=== PATIENT | female | born 1985 | race Caucasian/White ===

== ENCOUNTER 2016-08-25 09:07 | Inpatient (IN) ==
[2016-08-25] MEDS ORDERED: Ondansetron 4 MG/2 ML VIAL IVP ONE (09:18)
[2016-08-25] MEDS ORDERED: 0.9 % Sodium Chloride 500 ML IVC ONE (09:18)
--- NOTE | 2016-08-25 09:41 | Emergency Department Note ---
START Narrative - START START: I examined this patient and my medical decision-making was reviewed with the DRUM SEALER/PA/Advanced Practice Nurse/Resident Physician. I agree with the documented findings, disposition and treatment plan as described except to the extent set forth below. ED attending: Patient's emergency medicine resident Dr. Juarez. Please see copy of this note for H&P evaluation and management and ED disposition. We both had independent leno-eu-xest time in contact with this patient. Briefly: A 30-year-old female diabetic nonsmoker 2 months presents with chest pain nonexertional since 6 AM. Had an episode 48 hours ago for palpitations followed by a day of fatigue. Denies fevers chills or sputum. Of note patient has severe coronary artery disease and radius had 4 stents and coronary artery bypass graft surgery done about 2 years ago. He is to see Dr. Leyva at [facility] however she no longer is taking worsening new patients. Patient was seen 2 weeks ago and worked up at [facility] admission was offered but patient declined because of her at home. Based on her insurance she is normally in panel with providers at the [facility]. The soonest appointment she can get is September 11. Patient is currently lying in bed afebrile with stable vital signs. EKG shows nonspecific ST-T changes but no acute changes compared to prior EKG. Patient be worked up to exclude diagnostic possibilities which include but are not limited to: Acute coronary syndrome, myocardial infarction, peripartum cardiomyopathy, pneumonia, heart failure, diabetic sequelae, infectious etiologies, and pulmonary embolism. We have provided 45 minutes of critical care service for this patient. Disposition pending.
--- NOTE | 2016-08-25 09:44 | Emergency Department Note ---
Disposition Clinical Impression: NICOLASA (acute kidney injury), Hyperglycemia, Kidney disease, Heart palpitations, Acute on chronic renal failure Chest pain Qualifiers: Chest pain type: precordial pain Qualified Code(s): R07.2 - Precordial pain DKA, type 2 Qualifiers: Diabetes mellitus complication detail: without coma Diabetes mellitus senior living insulin use: with senior living use Qualified Code(s): E13.10 - Other specified diabetes mellitus with ketoacidosis without coma Disposition: Admitted As Inpatient Condition: Serious Time of Disposition: 11:18 Chest Pain HPI - General Chief Complaint: ED Chest Pain Stated Complaint: CP/SOB/Vomiting Time Seen by Provider: 08/25/16 09:18 Source: patient Limitations: no limitations Vital Signs Reviewed: Yes Nursing Notes Reviewed: Yes - History of Present Illness HPI Narrative: Patient is a 30-year-old female presents with a history significant for DE 2 CABG 2 years ago stent placement 4 with 1 stent one year ago, dabetes, HTN, CKD stg 3, Hypercholesterolemia, and has 2mo neweborn at home. Patient presents with chest pain 8 out of 10 occurs intermittently and last 20 minutes to an hour interval between episodes is unknown. Radiation of pain across the chest but not into the shoulders or extremities. Patient reports palpitations or preceding the episodes. Patient states pain started roughly 2 weeks ago and was seen here in the ED and given scheduled follow-up with cardiology was unable to follow-up. Patient admitted home with a baby and is a first- time mother distress thousand history of anxiety attacks states that these feel different she has never had chest pain with anxiety attack. Patient's vehicle was to for her cardiac issues that her surgery was done here. Severity scale (1-10): 5 - Related Data Home Medications Medication Instructions Recorded Confirmed Insulin Glargine,Hum.rec.anlog 1 unit SQ HS 01/12/15 08/25/16 [Lantus Solostar] Insulin LISPRO [HumaLOG] 2 - 10 units SQ TIDWM 01/12/15 08/25/16 Ranitidine HCl 150 mg PO BID 01/12/15 08/25/16 Amlodipine [Norvasc] 10 mg PO DAILY 08/25/16 08/25/16 Carvedilol [Coreg] 50 mg PO BID 08/25/16 08/25/16 Clopidogrel [Plavix] 75 mg PO DAILY 08/25/16 08/25/16 HydrOXYzine Pamoate [Vistaril] 50 mg PO TID PRN 08/25/16 08/25/16 Hydralazine HCl 50 mg PO BID 08/25/16 08/25/16 Hydralazine HCl 100 mg PO HS 08/25/16 08/25/16 Levothyroxine [Synthroid] 25 mcg PO DAILY 08/25/16 08/25/16 Previous Rx's Medication Instructions Recorded Aspirin Enteric Coated [Aspirin EC] 81 mg PO DAILY tablet. 01/23/15 Atorvastatin [Lipitor] 80 mg PO HS #60 tablet 01/23/15 Allergies Allergy/AdvReac Type Severity Reaction Status Date / Time Sulfa (Sulfonamide Allergy Rash Verified 08/15/16 22:30 Antibiotics) hydrocodone [From Vicodin] AdvReac Nausea Verified 08/15/16 22:30 tape AdvReac Redness of Uncoded 08/15/16 22:30 Skin z pack AdvReac Nausea Uncoded 08/15/16 22:30 All systems ED: reviewed and negative except as stated. Constitutional: Denies: fever, chills, weakness Eyes: Denies: vision change ENT ED: Denies: ear pain, throat pain, congestion Cardiovascular: Reports: chest pain, palpitations. Denies: dyspnea on exertion Respiratory: Denies: cough, dyspnea, wheezes, sputum production Gastrointestinal: Reports: nausea, vomiting. 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 CLERICAL history - Social History Smoking Status: Never smoker Alcohol use: Reports: rarely Drug use: Reports: none Physical Exam Vital Signs Temperature 98.0 F 08/25/16 09:09 Pulse Rate 114 08/25/16 09:09 Respiratory Rate 18 08/25/16 09:09 Blood Pressure 170/96 08/25/16 09:09 O2 Sat by Pulse Oximetry 98 08/25/16 09:09 Temperature 98.0 F 08/25/16 09:09 Pulse Rate 114 08/25/16 09:09 Respiratory Rate 18 08/25/16 09:09 Blood Pressure 170/96 08/25/16 09:09 O2 Sat by Pulse Oximetry 98 08/25/16 09:09 Oxygen Delivery Oxygen Delivery Room Air -General Appearance: Patient is a 30-year-old female who is alert and oriented 3 and in no acute distress. Patient is able to sit up and walk to the bed on her own. Patient has no pallor or diaphoresis -Neurological exam: Cranial nerves II-12 intact, no focal deficits observed, strength equal 5/5 bilaterally in upper and lower extremities - Head Head exam: atraumatic, normocephalic, normal inspection - Eye Eye exam: Present: normal appearance, PERRL, EOMI, negative for scleral icterus negative for conjunctival pallor - ENT ENT exam: normal exam, normal oropharynx, mucous membranes moist - Neck Neck exam: Present: normal inspection, full ROM, trachea midline, negative JVD - Chest Chest inspection: Present: Patient has bilateral equal rise and fall of chest wall. Non-tender to palpation. - Respiratory Respiratory exam: Clear to auscultation bilaterally without wheezes rales or rhonchi Cardiovascular Cardiovascular exam: Present: regular rate, normal rhythm, normal heart sounds, blowing systolic murmur without rubs or gallops - Abdominal Exam Abdominal exam: Present: soft, nondistended, Non-Tender light and deep palpation in all quadrants. Bowel sounds normoactive throughout all 4 quadrants. Negative for hyper or hyperresonance. - Extremities Exam Extremities exam: Present: normal inspection, full ROM, pulses equal radial and bilateral dorsal pedal - Back Exam Back exam: Present: normal inspection, full ROM. Absent: tenderness, CVA tenderness (R), CVA tenderness (L) - Psychiatric Psychiatric exam: Present: normal affect, normal mood - Skin Skin exam: Present: warm, dry, intact, normal color - General Limitations: no limitations General appearance: alert Course Course Narrative: Patient seen and examined. Patient underwent workup labs ordered. Imaging ordered chest x-ray - Reevaluation(s) Reevaluation #1: Discussed admission with patient who understands and accepts current treatment and plan Time: 11:05 - Consultations Consultation #1: Discussed case with Dr. Miranda this except the patient for admission to ICU Time: 11:13 Vital Signs Temperature 98.0 F 08/25/16 09:09 Pulse Rate 114 08/25/16 09:09 Respiratory Rate 18 08/25/16 09:09 Blood Pressure 170/96 08/25/16 09:09 O2 Sat by Pulse Oximetry 98 08/25/16 09:09 Temperature 97.9 F 08/25/16 21:23 Pulse Rate 80 08/25/16 21:45 Respiratory Rate 16 08/25/16 19:00 Blood Pressure 126/74 08/25/16 19:00 O2 Sat by Pulse Oximetry 97 08/25/16 20:00 Oxygen Delivery Oxygen Delivery Room Air Chest Pain - MDM Narrative Medical decision making narrative: Mrs. Somers is a 30-year-old female presents with a history significant for DE 2 CABG 2 years ago stent placement 4 with 1 stent one year ago, dabetes, HTN, CKD, Hypercholesterolemia. Patient's history is concerning for ACS/DE, PE, post cardiomyopathy, acute on chronic renal failure. Heart score is 3 Chest x-ray shows no acute abnormalities, patient is hemodynamically stable, afebrile but tachycardic in 110 bpm. Troponin negative at 0.02. Patient has hyperglycemia 629 with no loss with no anion gap. Given insulin and started on IV hydration. Patient has mild hyponatremia and mild hyperkalemia elevated BUN 33 and elevated creatinine of 2.09 that is up from 1.67 on previous visit showing acute kidney injury. Patient also has the elevated d-dimer of 990 today which raises suspicion for possible thromboembolic disease and is concerning for further workup with VQ scan which is not available for patient to have today secondary to the weekend. Patient is currently 2 months which is greater than 6 weeks and should be closer to prepregnancy state. After discussing the patient plan is to admit patient chest pain rule out in a patient with complicated cardiac history of CABG and 4 stents, elevated d-dimer concerning for PE, elevated creatinine or acute kidney injury, hyperglycemia leading to HHS with no anion gap. Pt was seen on the and offered admission but declined 2/2 2mo baby at home but was unable to make followup Patient is unable to have a CT angiogram secondary to elevated creatinine. She requires VQ scan but cannot have one today because the weekend. Dr. Miranda has accepted for admission 1113 but requests admission to ICU. - Medical Records Medical records reviewed: Yes I reviewed the patient's medical records. - Lab Data Lab results reviewed: Yes I reviewed the patient's lab results. Lab results narrative: Short CBC 08/25/16 Range/Units 09:54 WBC 10.0 (4.3-11.1) K/mcL Hgb 12.5 (11.5-15.4) g/dL Hct 39.7 (35.3-44.9) % Plt Count 404 H (140-400) K/mcL Neutrophils # 7.6 (1.6-8.9) K/mcL BMP 08/25/16 Range/Units 09:54 Sodium 131 L (136-145) mEq/L Potassium 4.6 H (3.5-4.5) mEq/L Chloride 101 (98-109) mEq/L Carbon Dioxide 17 L (19-29) mEq/L BUN 33 H (7-20) mg/dL Creatinine 2.09 H (0.57-1.11) mg/dL Glucose 629 H* (70-99) mg/dL Calcium 9.8 (8.6-10.8) mg/dL Cardiac Enzymes 08/25/16 Range/Units 09:54 Troponin I 0.02 (0-0.03) ng/mL Urine 08/25/16 Range/Units 10:45 Urine Color Yellow (Yellow) Urine Clarity Clear (Clear) Urine pH 6.5 (5.0-8.0) pH Units Ur Specific [place] 1.022 (1.010-1.025) Urine Protein >=300 H (Neg-Trace) mg/dL Urine Glucose (UA) >=1000 H (Normal) mg/dL Result diagrams: 08/25/16 09:54 08/25/16 19:43 Lab Results 08/25/16 08/25/16 08/25/16 Range/Units 09:54 09:54 09:54 WBC 10.0 (4.3-11.1) K/mcL RBC 5.31 H (3.82-4.97) M/mcL Hgb 12.5 (11.5-15.4) g/dL Hct 39.7 (35.3-44.9) % MCV 74.8 L (83.0-100.0) fL MCH 23.5 L (28.0-33.3) pg MCHC 31.5 L (31.6-35.5) g/dL RDW 13.5 (11.5-14.5) % Plt Count 404 H (140-400) K/mcL MPV 10.1 (9.4-12.4) fL Immature Gran % 0.4 (0-4) % Seg Neutrophils % 76.2 % Lymphocytes % 15.8 % Monocytes % 6.0 % Eosinophils % 1.4 % Basophils % 0.2 % Neutrophils # 7.6 (1.6-8.9) K/mcL Lymphocytes # 1.6 (0.6-4.6) K/mcL Monocytes # 0.6 (0.0-1.3) K/mcL Eosinophils # 0.1 (0.0-0.6) K/mcL Basophils # 0.0 (0.0-0.2) K/mcL D-Dimer 990 H (0-500) ng/mLFEU Sodium (136-145) mEq/L Potassium (3.5-4.5) mEq/L Chloride (98-109) mEq/L Carbon Dioxide (19-29) mEq/L BUN (7-20) mg/dL Creatinine (0.57-1.11) mg/dL Est GFR ( Amer) (> 60) Est GFR (Non-Af Amer) (> 60) BUN/Creatinine Ratio (6-26) Glucose (70-99) mg/dL Est Mean Plasma Glucose mg/dl Hemoglobin A1c ( - 5.6) % Calculated Osmolality (280-300) Calcium (8.6-10.8) mg/dL Troponin I (0-0.03) ng/mL Serum , Qual Negative (Negative) Urine Color (Yellow) Urine Clarity (Clear) Urine pH (5.0-8.0) pH Units Ur Specific [place] (1.010-1.025) Urine Protein (Neg-Trace) mg/dL Urine Glucose (UA) (Normal) mg/dL Urine Ketones (Negative) mg/dL Urine Blood (Negative) Urine Nitrite (Negative) Urine Bilirubin (Negative) Urine Urobilinogen (Normal) mg/dL Ur Leukocyte Esterase (Negative) Urine Microscopic RBC (0-3) per hpf Urine Microscopic WBC (0-3) per hpf Ur Squamous Epith Cells (None-Few) per lpf Urine Bacteria (None-Few) per hpf Hyaline Casts (None-Few) per lpf Ur Culture Indicated? (NO) 08/25/16 08/25/16 08/25/16 Range/Units 09:54 09:54 09:54 WBC (4.3-11.1) K/mcL RBC (3.82-4.97) M/mcL Hgb (11.5-15.4) g/dL Hct (35.3-44.9) % MCV (83.0-100.0) fL MCH (28.0-33.3) pg MCHC (31.6-35.5) g/dL RDW (11.5-14.5) % Plt Count (140-400) K/mcL MPV (9.4-12.4) fL Immature Gran % (0-4) % Seg Neutrophils % % Lymphocytes % % Monocytes % % Eosinophils % % Basophils % % Neutrophils # (1.6-8.9) K/mcL Lymphocytes # (0.6-4.6) K/mcL Monocytes # (0.0-1.3) K/mcL Eosinophils # (0.0-0.6) K/mcL Basophils # (0.0-0.2) K/mcL D-Dimer (0-500) ng/mLFEU Sodium 131 L (136-145) mEq/L Potassium 4.6 H (3.5-4.5) mEq/L Chloride 101 (98-109) mEq/L Carbon Dioxide 17 L (19-29) mEq/L BUN 33 H (7-20) mg/dL Creatinine 2.09 H (0.57-1.11) mg/dL Est GFR ( Amer) 34 L (> 60) Est GFR (Non-Af Amer) 28 L (> 60) BUN/Creatinine Ratio 16 (6-26) Glucose 629 H* (70-99) mg/dL Est Mean Plasma Glucose 278 mg/dl Hemoglobin A1c 11.3 H ( - 5.6) % Calculated Osmolality 309 H (280-300) Calcium 9.8 (8.6-10.8) mg/dL Troponin I 0.02 (0-0.03) ng/mL Serum , Qual (Negative) Urine Color (Yellow) Urine Clarity (Clear) Urine pH (5.0-8.0) pH Units Ur Specific [place] (1.010-1.025) Urine Protein (Neg-Trace) mg/dL Urine Glucose (UA) (Normal) mg/dL Urine Ketones (Negative) mg/dL Urine Blood (Negative) Urine Nitrite (Negative) Urine Bilirubin (Negative) Urine Urobilinogen (Normal) mg/dL Ur Leukocyte Esterase (Negative) Urine Microscopic RBC (0-3) per hpf Urine Microscopic WBC (0-3) per hpf Ur Squamous Epith Cells (None-Few) per lpf Urine Bacteria (None-Few) per hpf Hyaline Casts (None-Few) per lpf Ur Culture Indicated? (NO) 08/25/16 Range/Units 10:45 WBC (4.3-11.1) K/mcL RBC (3.82-4.97) M/mcL Hgb (11.5-15.4) g/dL Hct (35.3-44.9) % MCV (83.0-100.0) fL MCH (28.0-33.3) pg MCHC (31.6-35.5) g/dL RDW (11.5-14.5) % Plt Count (140-400) K/mcL MPV (9.4-12.4) fL Immature Gran % (0-4) % Seg Neutrophils % % Lymphocytes % % Monocytes % % Eosinophils % % Basophils % % Neutrophils # (1.6-8.9) K/mcL Lymphocytes # (0.6-4.6) K/mcL Monocytes # (0.0-1.3) K/mcL Eosinophils # (0.0-0.6) K/mcL Basophils # (0.0-0.2) K/mcL D-Dimer (0-500) ng/mLFEU Sodium (136-145) mEq/L Potassium (3.5-4.5) mEq/L Chloride (98-109) mEq/L Carbon Dioxide (19-29) mEq/L BUN (7-20) mg/dL Creatinine (0.57-1.11) mg/dL Est GFR ( Amer) (> 60) Est GFR (Non-Af Amer) (> 60) BUN/Creatinine Ratio (6-26) Glucose (70-99) mg/dL Est Mean Plasma Glucose mg/dl Hemoglobin A1c ( - 5.6) % Calculated Osmolality (280-300) Calcium (8.6-10.8) mg/dL Troponin I (0-0.03) ng/mL Serum , Qual (Negative) Urine Color Yellow (Yellow) Urine Clarity Clear (Clear) Urine pH 6.5 (5.0-8.0) pH Units Ur Specific [place] 1.022 (1.010-1.025) Urine Protein >=300 H (Neg-Trace) mg/dL Urine Glucose (UA) >=1000 H (Normal) mg/dL Urine Ketones Trace H (Negative) mg/dL Urine Blood Large H (Negative) Urine Nitrite Negative (Negative) Urine Bilirubin Negative (Negative) Urine Urobilinogen Normal (Normal) mg/dL Ur Leukocyte Esterase Negative (Negative) Urine Microscopic RBC 50-100 H (0-3) per hpf Urine Microscopic WBC 5-15 H (0-3) per hpf Ur Squamous Epith Cells Many H (None-Few) per lpf Urine Bacteria Few (None-Few) per hpf Hyaline Casts None Seen (None-Few) per lpf Ur Culture Indicated? YES A (NO) - Radiology Data Radiology results reviewed: Yes I reviewed the patient's radiology results. Chest X-Ray 08/25/16 09:18 IMPRESSION: No acute cardiopulmonary process identified. D/ / Mark Arrieta MD / Mark Arrieta MD Interpreting Provider: Mark Arrieta MD - EKG Data EKG attestation: Yes I reviewed and interpreted this EKG. EKG results narrative: EKG taken 08/25/2016 at 0921 hours shows a sinus tachycardia at a rate of 115 bpm patient has inverted T waves in V6 and no acute ST elevations or depressions in the leads. EKG looks similar to previous EKG taken 08/15/2016 Patient began having chest pain and repeat EKG was taken at 1021 hrs. on 2016 which showed a tachycardia sinus rhythm at [address] abnormalities looks very close similarity to previous EKG Heart Score - Score History: Slightly Suspicious EKG: Non Specific repolarisation Disturbance Age: Less than 45 Risk Factors: Equal/Greater than 3 risk factor or history of atherosclerotic disease Troponin: Less than normal limit HEART Score Total: 3
[2016-08-25 10:02] LABS: Basophils % 0.2 %; Eosinophils # 0.1 K/mcL (0.0-0.6); Eosinophils % 1.4 %; Hematocrit 39.7 % (35.3-44.9); Hemoglobin 12.5 g/dL (11.5-15.4); Immature Granulocytes % 0.4 % (0-4); Lymphocytes # 1.6 K/mcL (0.6-4.6); Lymphocytes % 15.8 %; Mean Corpuscular HGB Conc 31.5 g/dL (31.6-35.5); Mean Corpuscular Hemoglobin 23.5 pg (28.0-33.3); Mean Corpuscular Volume 74.8 fL (83.0-100.0); Mean Platelet Volume 10.1 fL (9.4-12.4); Monocytes # 0.6 K/mcL (0.0-1.3); Neutrophils # 7.6 K/mcL (1.6-8.9); Platelet Count 404 K/mcL (140-400); Red Blood Count 5.31 M/mcL (3.82-4.97); Red Cell Distribution Width 13.5 % (11.5-14.5); Segmented Neutrophils % 76.2 %
[2016-08-25] MEDS ORDERED: Ondansetron ODT 4 MG TAB.RAPDIS SL ONE (10:05)
[2016-08-25 10:15] LABS: Calcium 9.8 mg/dL (8.6-10.8); Potassium 4.6 mEq/L (3.5-4.5)
[2016-08-25] MEDS ORDERED: Insulin Human Regular 10 UNIT in 0.9 % Sodium Chloride 10 ML IV ONE (10:29)
[2016-08-25 10:58] LABS: Bilirubin,Urine Negative (Negative); Blood,Urine Large (Negative); Clarity,Urine Clear (Clear); Color,Urine Yellow (Yellow); Glucose,Urine (UA) >=1000 mg/dL (Normal); Ketones,Urine Trace mg/dL (Negative); Leukocyte Esterase,Urine Negative (Negative); Nitrite,Urine Negative (Negative); PH,Urine 6.5 pH Units (5.0-8.0); Protein,Urine >=300 mg/dL (Neg-Trace); Specific Gravity,Urine 1.022 (1.010-1.025); Urobilinogen,Urine Normal (Normal)
[2016-08-25 11:00] LABS: Bacteria,Urine Few per hpf (None-Few); Hyaline Casts,Urine None Seen per lpf (None-Few); RBC,Urine 50-100 per hpf (0-3); Squamous Epithelial Cell,Urine Many per lpf (None-Few)
[2016-08-25] MEDS ORDERED: *HR* LORazepam 2 MG/ML VIAL IVP ONE (11:16)
--- NOTE | 2016-08-25 13:05 | Internal Med History&Physical ---
Date of Encounter: 08/25/16 Time of Encounter: 12:50 Assessment and Plan (1) Chest pain Current visit: Yes Status: Acute Given history of coronary artery disease, we will trend troponins. Keep patient in the hospital for observation. Telemetry. Qualifiers: Chest pain type: precordial pain Qualified Code(s): R07.2 - Precordial pain (2) DKA, type 2 Current visit: Yes Status: Acute patient with acute DKA. She will need insulin and fluids per DKA protocol. monitor blood sugars closely. Qualifiers: Diabetes mellitus complication detail: without coma Diabetes mellitus intermediate insulin use: with intermediate use Qualified Code(s): E13.10 - Other specified diabetes mellitus with ketoacidosis without coma; Z79.4 - USP ( current) use of insulin (3) Diabetes mellitus Current visit: Yes Status: Chronic monitor blood sugars closely. 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 Will treat with IV fluids. Monitor renal function. Qualifiers: Chronic kidney disease stage: stage 2 (mild) Qualified Code(s): N18.2 - Chronic kidney disease, stage 2 (mild) (5) Hypertension Current visit: Yes Status: Chronic Blood pressure elevated. We will resume home medications. monitor blood pressure Qualifiers: Hypertension type: essential hypertension Qualified Code(s): I10 - Essential (primary) hypertension (6) Hyperlipidemia Current visit: Yes Status: Chronic continue Lipitor Qualifiers: Hyperlipidemia type: mixed hyperlipidemia Qualified Code(s): E78.2 - Mixed hyperlipidemia (7) Hypothyroidism Current visit: No Status: Chronic continue levothyroxine Qualifiers: Hypothyroidism type: other Qualified Code(s): E03.8 - Other specified hypothyroidism (8) Coronary artery disease Current visit: No Status: Chronic status post CABG. On Plavix, aspirin,Coreg, Lipitor. Qualifiers: Coronary Disease-Associated Artery/Lesion type: tang[place]q artery [place] vs. transplanted heart: tang[place]q heart Associated angina: with other forms of angina Qualified Code(s): I25.118 - Atherosclerotic heart disease of tangirnaq coronary artery with other forms of angina pectoris Internal Medicine - H&P: HPI Chief complaint: Chest pain Admitted From: Emergency Dept Plans for Post Hospital Care: Home History of present illness: Ms. Somers is a 30 year old female Patient with a history of type 1 diabetes mellitus, coronary artery disease status post cardiac CABG, stents presented to the ER with chest pain. Pain is 8 out of 10 in severity and located in the central chest without any radiation. It is intermittent and has been going on for about 2 weeks. Lasts for about 20 minutes. In the ER she received Zofran and Ativan with resolution of pain. Patient does have a history of anxiety disorder and has a 2-month-old child at home. She has never had anxiety induced chest pain before. Her last bypass graft was done in 2014. Patient has had significant history of coronary artery disease with GA and coronary artery stents despite her young age. She presently says her pain is better and she denies any nausea at this time. Denies any fever chills or night sweats. No shortness of breath or cough. Past Med Surg Social Fam HX - Past Medical History Source: old records reviewed Medical history: diabetes, hyperlipidemia, hypertension, myocardial infarction, renal disease, thyroid disease, other Psychiatric history: anxiety, depression - Past Surgical History Surgical History: angioplasty/stent, coronary bypass (CABG) - Social History Smoking Status: Never smoker Smokeless Tobacco Status: No Alcohol use: rarely Drug use: none - Family History Mother Family Member Ethnicity: Non- Living Status: Still Living Hx Family Cardiac Disorders: Yes (CAD) Father Family Member Ethnicity: Non- Living Status: Still Living Hx Family Cardiac Disorders: Yes (Father hx of heart disease s/p CABG) Brother Adopted: No Family Member Ethnicity: Non- Living Status: Hx Family Cardiac Disorders: (Father w/heart disease s/p CABG) Internal Medicine - H&P: Meds Insulin Glargine,Hum.rec.anlog [Lantus Solostar] 1 unit SQ HS 01/12/15 [History] Insulin LISPRO [HumaLOG] 2 - 10 units SQ TIDWM 01/12/15 [History] Ranitidine HCl 150 mg PO BID 01/12/15 [History] Aspirin Enteric Coated [Aspirin EC] 81 mg PO DAILY tablet. 01/23/15 [Rx] Atorvastatin [Lipitor] 80 mg PO HS #60 tablet 01/23/15 [Rx] Amlodipine [Norvasc] 10 mg PO DAILY 08/25/16 [History] Carvedilol [Coreg] 50 mg PO BID 08/25/16 [History] Clopidogrel [Plavix] 75 mg PO DAILY 08/25/16 [History] HydrOXYzine Pamoate [Vistaril] 50 mg PO TID PRN 08/25/16 [History] Hydralazine HCl 50 mg PO BID 08/25/16 [History] Hydralazine HCl 100 mg PO HS 08/25/16 [History] Levothyroxine [Synthroid] 25 mcg PO DAILY 08/25/16 [History] Allergies Sulfa (Sulfonamide Antibiotics) Allergy (Verified 08/15/16 22:30) Rash hydrocodone [From Vicodin] Adverse Reaction (Verified 08/15/16 22:30) Nausea tape Adverse Reaction (Uncoded 08/15/16 22:30) Redness of Skin z pack Adverse Reaction (Uncoded 08/15/16 22:30) Nausea All Systems PM: A 10-system review of systems was performed and is negative for pertinent findings except as documented above in the HPI. - Constitutional Constitutional: no chills, no fever(s), no night sweats - EENT Eyes: no change in vision, no discharge, no pain, no photophobia Ears: no ear discharge, no ear pain, no tinnitus Nose, mouth and throat: no dysphagia, no nasal discharge, no neck pain, no sore throat - Cardiovascular Cardiovascular ROS IM: chest pain, no diaphoresis, no dyspnea, no lightheadedness, no palpitations, no syncope - Respiratory Respiratory: no cough, no dyspnea, no wheezing, no excessive phlegm production - Gastrointestinal Gastrointestinal: nausea, no abdominal pain, no diarrhea, no hematemesis, no hematochezia, no melena, no vomiting - Genitourinary Genitourinary: no change in urinary stream, no dysuria, no flank pain, no hematuria - Musculoskeletal Musculoskeletal ROS IM: no numbness, no tingling - Integumentary Integumentary IM: no rash, no unusual bruising - Neurological Neurological ROS: no confusion, no convulsions, no focal weakness, no numbness, no tingling, no tremor(s) - Hematologic/Lymphatic Hematologic/Lymphatic: no easy bruising - Constitutional Vitals: Temp Pulse Resp BP Pulse Ox 98.0 F 111 18 134/78 97 08/25/16 09:09 08/25/16 12:00 08/25/16 12:00 08/25/16 12:00 08/25/16 12:00 General appearance: Present: no acute distress, answers questions appropriately Exam: Somnolent but awakes and is oriented - Eye Eye exam: Present: EOMI, PERRL, conjuntiva pink, sclera anicteric - Neck Neck exam general surgery: Present: supple, trachea midline. Absent: lymphadenopathy - Respiratory Respiratory exam: Present: CTAB. Absent: accessory muscle use, rales, rhonchi, wheezes - Cardiovascular Cardiovascular exam: Present: RRR, +S1, +S2. Absent: diastolic murmur, gallop, rubs, systolic murmur - GI/Abdominal GI/Abdominal exam: Present: normal bowel sounds, soft, no peritoneal signs. Absent: distended, tenderness - Extremities Exam Extremities exam: Present: warm, radial pulses palpable and symetrical. Absent : calf tenderness, cyanotic, pedal edema - Neurological Exam Neurological exam: Present: no focal deficits. Absent: facial droop, speech deficit - Psychiatric Psychiatric exam: Present: flat affect - Skin Skin exam: Present: dry, intact Internal Med - H&P Results - Labs CBC & Chem 7: 08/25/16 09:54 08/25/16 09:54 - EKG Data EKG shows normal: sinus rhythm, ST-T waves (T wave inversion Lead v6) Rate: tachycardia - Impressions Impressions Chest X-Ray 08/25/16 09:18 IMPRESSION: No acute cardiopulmonary process identified. D/ / Mark Arrieta MD / Mark Arrieta MD Interpreting Provider: Mark Arrieta MD - Attending Attestation This document has been at least partially created by in3Depth recognition technology by Dr. Miranda. Errors in grammar, wording or other phrases may exist. If errors are found after the documentation is signed, they will be addressed individually in the addendum section of this document when appropriate.
[2016-08-25] MEDS ORDERED: *HR* Dextrose 50 % in Water (Syg) 50 ML SYRINGE IVP PRN ×2 (13:35→17:54)
[2016-08-25] MEDS ORDERED: Insulin Regular, Human 100 UNIT/ML IV PRN (13:35)
[2016-08-25] MEDS ORDERED: Ondansetron 4 MG/2 ML VIAL IVP PRN (13:38)
[2016-08-25] MEDS ORDERED: Naloxone 0.4 MG/ML INJ IVP PRN (13:38)
[2016-08-25] MEDS ORDERED: hydrOXYzine pamoate 25 MG CAPSULE PO PRN (13:41)
[2016-08-25] MEDS ORDERED: 0.9 % Sodium Chloride 1,000 ML IV SCH (13:45)
[2016-08-25 13:56] LABS: Hemoglobin A1C 11.3 %
[2016-08-25] MEDS ORDERED: D5% in 0.45% NACL 1,000 ML IVC PRN (14:11)
[2016-08-25] MEDS ORDERED: Insulin Human Regular 100 UNIT in 0.9 % Sodium Chloride 100 ML IVC SCH (14:15)
[2016-08-25] MEDS ORDERED: D5% in 0.45% NACL w KCl 20 MEQ/1,000 ML MLS IVC PRN (14:16)
[2016-08-25 17:35] LABS: Calcium 8.6 mg/dL (8.6-10.8)
[2016-08-25] MEDS ORDERED: Insulin DETEMIR 100 UNIT/ML X5UNITS SQ STA (17:52)
[2016-08-25] MEDS ORDERED: D5% in Water 1,000 ML IV PRN (17:54)
[2016-08-25] MEDS ORDERED: Dextrose Gel 15 GM PO PRN ×2 (17:54)
[2016-08-25 20:00] LABS: Calcium 8.6 mg/dL (8.6-10.8); Potassium 4.2 mEq/L (3.5-4.5)
[2016-08-25] MEDS: hydrALAZINE 25 MG TABLET PO SCH (20:11)
[2016-08-25] MEDS: Insulin LISPRO 300 UNITS/3 ML VIAL SQ SCH (20:12)
[2016-08-26 03:31] LABS: Calcium 8.5 mg/dL (8.6-10.8); Potassium 4.2 mEq/L (3.5-4.5)
[2016-08-26 03:32] LABS: Chol/HDL Ratio 7.9 (0-4.9); HDL Cholesterol 33 mg/dL (40-59); Triglycerides 455 mg/dL (< 150)
[2016-08-26 03:33] LABS: Cholesterol 260 mg/dL (< 200)
[2016-08-26] MEDS ORDERED: *HR* Heparin 5,000 UNIT/ML VIAL IVP PRN ×2 (03:50)
[2016-08-26] MEDS ORDERED: *HR* Heparin 5,000 UNIT/ML VIAL IVP ONE (03:50)
[2016-08-26 05:02] LABS: Prothrombin Time 10.8 Seconds (9.4-12.1)
[2016-08-26 05:05] LABS: Activated Partial Thrombo Time 26.5 Seconds (26.0-36.0)
[2016-08-26 05:06] LABS: Hematocrit 36.3 % (35.3-44.9); Hemoglobin 11.3 g/dL (11.5-15.4); Mean Corpuscular HGB Conc 31.1 g/dL (31.6-35.5); Mean Corpuscular Volume 77.2 fL (83.0-100.0); Mean Platelet Volume 10.2 fL (9.4-12.4); Platelet Count 346 K/mcL (140-400); Red Cell Distribution Width 13.7 % (11.5-14.5)
[2016-08-26] MEDS: Heparin 25,000 UNIT/500 ML D5W 25,000 UNIT/500 ML MLS IVC SCH (05:18)
[2016-08-26] MEDS: Levothyroxine 25 MCG TABLET PO SCH (05:19)
[2016-08-26] MEDS: Famotidine 20 MG TABLET PO SCH (08:06)
[2016-08-26] MEDS: Aspirin Enteric Coated 81 MG Tablet PO SCH (08:07)
[2016-08-26] MEDS: Insulin LISPRO 300 UNITS/3 ML VIAL SQ SCH ×6 (08:07→20:01)
[2016-08-26] MEDS: hydrALAZINE 25 MG TABLET PO SCH ×2 (08:07→20:54)
[2016-08-26] MEDS: amLODIPine 5 MG TABLET PO SCH (08:07)
--- NOTE | 2016-08-26 10:19 | Electrocardiograph Report ---
[address] [place], [place] [address] Test Date: 2016-08-25 Pat Name: Eunice Somers Department: 103 Room: [facility] Gender: F Hand Picker: : [phone] Requested By: Tomas Moulton Order Number: [id number] Reading MD: Jordan Marin MD Measurements Intervals [place] Rate: 115 P: 45 [place]: 142 QRS: 16 QRSD: 82 T: 109 QT: 341 QTc: 409 Interpretive Statements SINUS TACHYCARDIA CONSIDER LATERAL ISCHEMIA Electronically Signed On 08-26-2016 10:17:17 EDT by Jordan Marin MD
--- NOTE | 2016-08-26 10:46 | Cardiology Consult Note ---
Date of Encounter: 08/26/16 Time of Encounter: 11:00 Assessment and Plan (1) Elevated troponin Current Visit: Yes Status: Acute NSTEMI type I vs. II, demand ischemia, in the setting of NICOLASA on CKD, HTN, and DKA. No acute ECG changes compared to previous. She states chest pain was different from prior [place] presentation. Pain free upon exam. Peak troponin=0.35 with downward trend. Hx of premature CAD--CABG x1 in January 2015 due to ISR. Reports PCI in September [address] Burk at [facility]--records requested. Of note, had known residual LCx stenosis s/p CABG with Dr. Lamas. Has also followed with [facility] and has appointment 09/11/16. Continue heparin gtt for 24-48 hours. Continue asa, statin, plavix, and betablocker. Obtain TTE and old records. (2) Hypertension Current Visit: Yes Status: Chronic SBP >170 upon admission. Home medications resumed and is now stable, encouraged compliance with meds at home. Qualifiers: Hypertension type: essential hypertension Qualified Code(s): I10 - Essential (primary) hypertension (3) NICOLASA (acute kidney injury) Current Visit: Yes Status: Acute NICOLASA on CKD; SCr improved this AM. Baseline 1.3-1.6. Discussion w patient/family: The assessment and plan as outlined above was discussed with the patient and/or family members who expressed understanding and agreement. All questions were answered. Thank you for involving us in the care of your patient. Please call with any questions. The patient will be discussed and reviewed with Dr. Sauceda; changes to be made accordingly. History of Present Illness Consult date: 08/26/16 Requesting physician: Chad Camilo Consult reason: Elevated troponin Chief complaint: Chest pain History of present illness: Ms. Somers is a 30 year old female with PMH of poorly controlled DMI, HTN, HLD, CKD, and CAD s/p CABG who presented to the ED with a 1 day history of left- sided chest pain, reports pain lasted several hours. She took a NTG tab at home which did not improve symptoms and therefore went to the ED. Associated symptoms include nausea and 1 episode of vomiting. Upon arrival to ED, blood glucose was >600 and was noted to have an NICOLASA on CKD. Initial troponin was 0.04. Upon exam this morning she is chest pain free and has no complaints. She reports non-compliance with insulin and checking blood glucose at home. She also has a open wound (improved per patient/ report) to abdominal incision s/p . Prior CV testing includes: Stress echocardiogram 05/09/15: Appropriate increase EF with stress without wall motion abnormality. LVEF 60-65% Mild concentric hypertrophy of the left ventricle. Appropriate increase in LVEF with Stress. LVEF augments from 60-65 to 70-75 %. Exercise ECG was positive for ischemia. The exercise capacity was fair, did not reach target heart rate There is 2mm horizontal ST depression with stress - inferolateral - that is diagnostic for ischemia (worsened from baseline) but maybe secondary to LVH Patient had no chest pain with stress. Hypertensive response to stress. No arrhythmias noted with stress. [facility] 01/19/15: CABRERA-LAD LHC 01/13/15: severe three vessel coronary artery disease, EF 65%, severe diastolic dysfunction, Previous stents in proximal/mid LAD, OM1 patent, Severe instent restenosis of mid LAD DOUG--patient was recommended for bypass. LMCA: 20% stenosis LAD: 40% pLAD, 99% ISR mLAD--long and diffusely diseased, 20% ISR prox- mid LAD LCx: 35% pLCx, 85% serial stenoses mLCx, 20% ISR OM1 RCA: 99% pRCA, small and non-dominant. Past Med Surg Social Fam HX - Past Medical History Attestation: Yes The following information was validated with the patient. Source: patient, old records reviewed Medical history: coronary artery disease, diabetes, hyperlipidemia, hypertension , myocardial infarction, renal disease, thyroid disease Psychiatric history: anxiety, depression - Past Surgical History Surgical History: angioplasty/stent, coronary bypass (CABG) - Social History Smoking Status: Never smoker Smokeless Tobacco Status: No Alcohol use: rarely Drug use: none - Family History Mother Family Member Ethnicity: Non- Living Status: Still Living Hx Family Cardiac Disorders: Yes (CAD) Father Family Member Ethnicity: Non- Living Status: Still Living Hx Family Cardiac Disorders: Yes (Father hx of heart disease s/p CABG) Brother Adopted: No Family Member Ethnicity: Non- Living Status: Hx Family Cardiac Disorders: (Father w/heart disease s/p CABG) Medications and Allergies Insulin Glargine,Hum.rec.anlog [Lantus Solostar] 1 unit SQ HS 01/12/15 [History] Insulin LISPRO [HumaLOG] 2 - 10 units SQ TIDWM 01/12/15 [History] Ranitidine HCl 150 mg PO BID 01/12/15 [History] Aspirin Enteric Coated [Aspirin EC] 81 mg PO DAILY tablet. 01/23/15 [Rx] Atorvastatin [Lipitor] 80 mg PO HS #60 tablet 01/23/15 [Rx] Amlodipine [Norvasc] 10 mg PO DAILY 08/25/16 [History] Carvedilol [Coreg] 50 mg PO BID 08/25/16 [History] Clopidogrel [Plavix] 75 mg PO DAILY 08/25/16 [History] HydrOXYzine Pamoate [Vistaril] 50 mg PO TID PRN 08/25/16 [History] Hydralazine HCl 50 mg PO BID 08/25/16 [History] Hydralazine HCl 100 mg PO HS 08/25/16 [History] Levothyroxine [Synthroid] 25 mcg PO DAILY 08/25/16 [History] Allergies Sulfa (Sulfonamide Antibiotics) Allergy (Verified 08/15/16 22:30) Rash hydrocodone [From Vicodin] Adverse Reaction (Verified 08/15/16 22:30) Nausea tape Adverse Reaction (Uncoded 08/15/16 22:30) Redness of Skin z pack Adverse Reaction (Uncoded 08/15/16 22:30) Nausea All Systems Review: A 10-system review of systems was performed and is negative for pertinent findings except as documented above in the HPI. - Cardiovascular Cardiovascular: as per HPI Physical Examination Vital Signs, Last 4 Hours Temp Pulse Resp BP Pulse Ox 08/26/16 10:00 79 18 08/26/16 09:00 84 16 08/26/16 08:00 84 16 111/62 96 08/26/16 07:30 98.0 F 08/26/16 07:00 82 14 95 General: Conversant, No Apparent Distress HEENT: Atraumatic, Normocephaly, Mucus Membranes Moist Cardiac: Reg Rate and Rhythm, Normal S1 and S2 Lungs: Normal Breath Sounds Neuro: Alert and responsive Abdomen: Soft Skin: No rashes noted on visualized skin, Other (mid sternal scar) Musculoskeletal: No Chest Wall Tenderness Extremities: No Edema, Normal Pulses Results 08/26/16 04:18 08/26/16 03:06 Lab Results 08/25/16 08/25/16 08/25/16 16:31 16:31 19:43 Sodium 139 D 141 Potassium 4.0 4.2 Chloride 110 H 110 H Carbon Dioxide 23 21 BUN 28 H 26 H Creatinine 1.57 H 1.41 H Glucose 264 H 123 H Calcium 8.6 8.6 Troponin I 0.04 H* 08/25/16 08/26/16 08/26/16 21:50 03:06 03:06 Sodium 135 L Potassium 4.2 Chloride 107 Carbon Dioxide 20 BUN 26 H Creatinine 1.59 H Glucose 269 H Calcium 8.5 L Troponin I 0.26 H* 0.35 H* 08/26/16 08/26/16 08/26/16 04:18 04:18 09:48 WBC 8.7 Hgb 11.3 L Hct 36.3 Plt Count 346 INR 1.0 APTT 26.5 Troponin I 0.28 H* Active Medications Amlodipine Besylate (Norvasc) 10 mg PO DAILY [facility] PRN Reason: Protocol Stop: 02/25/17 09:01 Last Admin: 08/26/16 08:07 Dose: 10 mg Aspirin (Aspirin Ec) 81 mg PO DAILY [facility] Stop: 02/25/17 09:01 Last Admin: 08/26/16 08:07 Dose: 81 mg Atorvastatin Calcium (Lipitor) 80 mg PO HS [facility] Stop: 02/24/17 21:01 Last Admin: 08/25/16 20:11 Dose: 80 mg Carvedilol (Coreg) 50 mg PO BID [facility] PRN Reason: Protocol Stop: 02/24/17 21:01 Last Admin: 08/26/16 08:07 Dose: 50 mg Clopidogrel Bisulfate (Plavix) 75 mg PO DAILY [facility] Stop: 02/25/17 09:01 Last Admin: 08/26/16 08:07 Dose: 75 mg Dextrose/Water (Dextrose 50% (Syg)) 25 ml IVP Q15MIN PRN PRN Reason: Hypoglycemia Stop: 02/24/17 13:36 Dextrose/Water (Dextrose 50% (Syg)) 25 ml IVP AD PRN PRN Reason: Hypoglycemia Stop: 02/24/17 17:55 Famotidine (Pepcid) 20 mg PO DAILY@0730 [facility] Stop: 02/25/17 07:31 Last Admin: 08/26/16 08:06 Dose: 20 mg Glucagon (Glucagen) 1 mg IM ONCE PRN PRN Reason: Hypoglycemia Stop: 02/24/17 17:55 Glucose (Gluctose) 15 gm PO ONCE PRN PRN Reason: Hypoglycemia Stop: 02/24/17 17:55 Glucose (Gluctose) 30 gm PO ONCE PRN PRN Reason: Hypoglycemia Stop: 02/24/17 17:55 Heparin Sodium (Porcine) (Heparin) 4,000 unit IVP Q6HR PRN PRN Reason: SEE COMMENTS Stop: 02/25/17 03:51 Heparin Sodium (Porcine) (Heparin) 2,000 unit IVP Q6H PRN PRN Reason: SEE COMMENTS Stop: 02/25/17 03:51 Hydralazine HCl (Hydralazine) 50 mg PO BID [facility] Stop: 02/24/17 21:01 Last Admin: 08/26/16 08:07 Dose: 50 mg Hydroxyzine Pamoate (Hydroxyzine Pamoate) 50 mg PO TID PRN PRN Reason: Anxiety Sodium Chloride (0.9 % Sodium Chloride) 1,000 mls @ 500 mls/hr IV TITR [facility] PRN Reason: Protocol Stop: 02/24/17 13:46 Last Admin: 08/25/16 14:29 Dose: 500 mls/hr Dextrose/Sodium Chloride (D5% And 0.45% Nacl 1000 Ml Bag) 1,000 mls @ 250 mls/ hr IVC .Q4H PRN PRN Reason: SEE COMMENTS Stop: 02/24/17 14:12 Potassium Chloride/Dextrose/Sod Cl (Kcl 20meq In D5%-0.45 Nacl) 20 meq in 1, 000 mls @ 250 mls/hr IVC .Q4H PRN PRN Reason: SEE COMMENTS Stop: 02/24/17 14:17 Dextrose (Dextrose 5%) 1,000 mls @ 100 mls/hr IV CONT PRN PRN Reason: HYPOGLYCEMIA Stop: 02/24/17 17:55 Heparin Sodium/Dextrose (Heparin 25,000 Unit/500 Ml D5w) 25,000 unit in 500 mls @ 19.816 mls/hr IVC .Q24H [facility]A; 10.1 UNIT/KG/HR PRN Reason: Protocol Stop: 02/25/17 04:01 Last Admin: 08/26/16 05:18 Dose: 10.1 unit/kg/hr, 19.816 mls/hr Insulin Human Lispro (Humalog) 0 units SQ HS [facility] PRN Reason: Protocol Stop: 02/24/17 21:01 Last Admin: 08/25/16 20:12 Dose: Not Given Insulin Human Lispro (Humalog) 0 units SQ TIDAC [facility] PRN Reason: Protocol Stop: 02/25/17 07:31 Last Admin: 08/26/16 08:07 Dose: 12 units Levothyroxine Sodium (Synthroid) 25 mcg PO DAILY@0630 [facility] Stop: 02/25/17 06:31 Last Admin: 08/26/16 05:19 Dose: 25 mcg Naloxone HCl (Narcan) 0.4 mg IVP Q2MIN PRN PRN Reason: Opioid Reversal Stop: 02/24/17 13:39 Ondansetron HCl (Zofran) 4 mg IVP Q8HR PRN PRN Reason: Nausea And Vomiting Stop: 02/24/17 13:39 - Imaging and Cardiology Stress Test: report reviewed Echo: report reviewed Cardiac cath: report reviewed Other Results: 12 hour tele: avg HR=81 SR. No significant event noted. - EKG Interpretation EKG results cardiology: personally reviewed Consult Discharge Plan - Plan Referrals: Rachel Hong CNP [Primary Care Provider] -
--- NOTE | 2016-08-26 10:47 | Internal Med Progress Note ---
<Rito Negron - Last Filed: 08/26/16 13:59> Date of Encounter: 08/26/16 Time of Encounter: 09:00 - Assessment and plan (1) Elevated troponin Current Visit: Yes Status: Acute Assessment and plan: - Patient with significant CAD history s/p CABG presented with chest pain and found to have elevated troponin as high as 0.35 - Troponin now trended down to 0.28. - No significant ischemic change on EKG compared to previous one. Currently chest-free. - Cardiology thinks it's likely from demand ischemia in the setting of NICOLASA on CKD, DM and HTN. - Continue heparin gtt for 24 -48 hours along with aspirin, statin, Plavix and beta rui as recommended per cardiology. - Will obtain TTE for further evaluation. - Appreciate cardiology assistance on patient care. - Closely monitoring with telemetry. (2) Acute on chronic renal failure Current Visit: Yes Status: Acute Assessment and plan: - SCr 2.09 on initial presentation (baseline ~1.2). - Likely secondary to dehydration and uncontrolled diabetes. - Improves with SCr 1.59 today. - Continue to monitor renal function. (3) Vaginal bleeding Current Visit: Yes Status: Acute Assessment and plan: - 2 months and patient reports episodes of vaginal bleeding. - Unhealed incision site is also noted, likely related to uncontrolled diabetes. Wound care consulted. - Patient is currently on heparin drip. And she reports vaginal bleeding again. - Appreciate OBGYN evaluation and recommendation. (4) Diabetes mellitus Current Visit: Yes Status: Chronic Assessment and plan: - Uncontrolled diabets with Hgb A1C of 11.3. - Continue basal and sliding scale insulin with glucose monitoring. - nurse informatics educator consulted. Qualifiers: Diabetes mellitus type: type 2 Diabetes mellitus complication status: with ketoacidosis Diabetes mellitus complication detail: without coma Diabetes mellitus alf insulin use: with watermelon harvesting supervisor use Qualified Code(s): E13.10 - Other specified diabetes mellitus with ketoacidosis without coma; Z79.4 - shelter (current) use of insulin (5) Coronary artery disease Current Visit: No Status: Chronic Assessment and plan: - CAD s/p CABG 2014 also with multiple CV risk factors including DM, HTN and hyperlipidemia. - Continue aspirin, plavix, statin and beta rui. Qualifiers: Coronary Disease-Associated Artery/Lesion type: [place] artery [place] vs. transplanted heart: [place] heart Associated angina: with other forms of angina Qualified Code(s): I25.118 - Atherosclerotic heart disease of [place] coronary artery with other forms of angina pectoris - Subjective Interval history: No significant event noted overnight. Patient was seen and examined this morning. Patient is sitting in chair and states doing well. She reports no chest pain, palpitation, shortness of breath, nausea, vomiting, diarrhea, fever , chills. Patient just had a baby boy two months ago but reports having 3 days of menstrual period that stopped three days ago but restarted today. - Constitutional Vitals: Temp Pulse Resp BP Pulse Ox 98.0 F 79 18 111/62 96 08/26/16 07:30 08/26/16 10:00 08/26/16 10:00 08/26/16 08:00 08/26/16 08:00 General appearance: Present: cooperative, A&O X 3, no acute distress, answers questions appropriately - Head Head exam: Present: atraumatic, normocephalic - Eye Eye exam: Present: PERRL, conjuntiva pink, sclera anicteric - Neck Neck exam general surgery: Present: supple, trachea midline. Absent: lymphadenopathy - Respiratory Respiratory exam: Present: CTAB. Absent: accessory muscle use, rales, rhonchi, wheezes - Cardiovascular Cardiovascular exam: Present: RRR, +S1, +S2. Absent: diastolic murmur, gallop, rubs, systolic murmur - GI/Abdominal GI/Abdominal exam: Present: normal bowel sounds, soft, no peritoneal signs. Absent: distended, tenderness Additional comments: Unhealed incision site noted. - Extremities Exam Extremities exam: Present: warm, radial pulses palpable and symetrical. Absent : calf tenderness, cyanotic, pedal edema - Neurological Exam Neurological exam: Present: CN II-XII intact, oriented X3, no focal deficits. Absent: pronater drift, facial droop, speech deficit - Skin Skin exam: Present: dry, warm Internal Medicine: Result - Labs CBC & Chem 7: 08/26/16 04:18 08/26/16 03:06 Labs: Short CBC 08/26/16 Range/Units 04:18 WBC 8.7 (4.3-11.1) K/mcL Hgb 11.3 L (11.5-15.4) g/dL Hct 36.3 (35.3-44.9) % Plt Count 346 (140-400) K/mcL BMP 08/25/16 08/25/16 08/26/16 16:31 19:43 03:06 Sodium 139 D 141 135 L Potassium 4.0 4.2 4.2 Chloride 110 H 110 H 107 Carbon Dioxide 23 21 20 BUN 28 H 26 H 26 H Creatinine 1.57 H 1.41 H 1.59 H Glucose 264 H 123 H 269 H Calcium 8.6 8.6 8.5 L Cardiac Enzymes 08/25/16 08/25/16 08/26/16 Range/Units 16:31 21:50 03:06 Troponin I 0.04 H* 0.26 H* 0.35 H* (0-0.03) ng/mL 08/26/16 Range/Units 09:48 Troponin I 0.28 H* (0-0.03) ng/mL - ABG Interpretation ABG results: PT/INR, D-dimer PT 10.8 Seconds (9.4-12.1) 08/26/16 04:18 D-Dimer 990 ng/mLFEU (0-500) H 08/25/16 09:54 Consult Discharge Plan - Plan Referrals: Rachel Hong, [facility]CA [Primary Care Provider] - <Chad Camilo T - Last Filed: 08/26/16 17:15> - Constitutional Vitals: Temp Pulse Resp BP Pulse Ox 97.8 F 84 16 111/62 96 08/26/16 16:06 08/26/16 13:00 08/26/16 11:00 08/26/16 08:00 08/26/16 08:00 Internal Medicine: Result - Labs CBC & Chem 7: 08/26/16 04:18 08/26/16 03:06 - ABG Interpretation ABG results: PT/INR, D-dimer PT 10.8 Seconds (9.4-12.1) 08/26/16 04:18 D-Dimer 990 ng/mLFEU (0-500) H 08/25/16 09:54 - Attending Attestation I examined this patient and my medical decision-making was reviewed with the OXYGRAPH OPERATOR/PA/Advanced Practice Nurse/Resident Physician. I agree with the documented findings, disposition and treatment plan as described except to the extent set forth below. 30 Y/O F with Uncontrolled DM with micro and macrovascular complications, A1C 11.3, 2 months post-, hx of CAD s/p CABG in 2014 Here for evaluation for chest pain Seen at bedside, reports chest pain improved since medications were started, she also complained of vaginal bleed, which she doesn't think is her period. Physical exam: Obese, not in distress, VSS, chest with scar and keloid formation , chest is clear, no chest wall tenderness, heart S1, S2, abdomen with C/S wound still slightly open, soaked dressing, foul smelling,, no pedal edema Labs and Imaging reviewed Uncontrolled DM, NSTEMI, possibly type I given risk factors, also possibly Type II, cardiology input appreciated. Start ACEI, patient is not breasfeeeding. TABLE KEEPER to review vaginal bleed, follow ECHO. Continue current care Wound care nurse eval for C/S wound *High risk due to heparin drip Rest of details as in resident's documentation
--- NOTE | 2016-08-26 15:01 | ECHO - Doppler Report ---
Echocardiogram Name: Eunice Somers Date of Study: 08/26/2016 Date: 1985 Ht: 63.0 in Medical Record#: [id number] Age: 30 Wt: 216.0 lb Gender: Female BSA: 2 Order #: [id number] Location: [facility] Room #: ICU05 Reading Physician: Ana Almaguer DO Drawing Supervisor: Johnson Deleon RN Ordering Physician: Jesus Manuel Warren MD Primary Physician: None Indications: Elevated Troponin Impressions: LVEF 65%. Normal left ventricular size and systolic function. Mild concentric hypertrophy of the left ventricle. There is evidence of moderate diastolic dysfunction of the left ventricle. Normal right ventricular size and function. Mild mitral regurgitation. Mild-moderate tricuspid regurgitation. No pulmonary hypertension. Left Ventricular Wall Motion: Rest Echo Findings All wall segments showed normal motion. Findings: Study Quality * Technically adequate exam. ECG Findings * Normal sinus rhythm. Left Ventricle * LVEF 65%. * Moderate left ventricular diastolic dysfunction. * Mild concentric left ventricular hypertrophy. Mitral Valve * Normal mitral valve structure. * No mitral stenosis. * Mild mitral regurgitation. Aortic Valve * No aortic regurgitation. * Aortic valve not well visualized. * No aortic stenosis. Tricuspid Valve * Normal tricuspid valve structure. * Mild-moderate tricuspid regurgitation. * Estimated RA pressure is 3 mmHg. * Estimated RVSP is 25 mmHg. * No pulmonary hypertension. Pulmonic Valve * Pulmonic valve is not well visualized. * No pulmonic stenosis. * No pulmonic regurgitation. Pulmonary Artery * Pulmonary artery not well visualized. Right Ventricle * Normal right ventricular structure and function. Right Atrium * Normal right atrial size. Left Atrium * Moderately dilated left atrium. Interatrial Septum * Interatrial septum not well evaluated. Pericardium * There is no pericardial effusion present. IVC * The IVC is not dilated. Aorta * Normally sized aortic root. History Hypertension Diabetes Hypercholesteremia Family History of CAD History of CAD/PTCA Myocardial Infarction Coronary Artery Bypass Graft 05/09/2015 a Previous Echo was performed. Measurements: BP: 111/ 62 2D Normal Values IVSd: 1.30 cm 0.6 - 1.0 cm LVIDd: 4.20 cm 3.7 - 5.6 cm LVPWd: 1.30 cm 0.6 - 1.1 cm LVIDs: 2.50 cm 1.5 - 3.6 cm LA: 2.90 cm 2.0 - 4.0cm %FS: 40.50 cm >25 % LVOT Diam: 2.00 cm LA volume: 69 Mitral Valve Peak E:1.10 m/sec Peak A:.83 m/sec E/A Ratio:1.3 Peak E' Lat Ian:8.97 cm/s Peak E' Med Ian:8.68 cm/s E/E' Lat Ratio:12.3 E/E' Med Ratio:12.7 Tricuspid Valve TV Regurg Peak Grad: 22.00mmHg TV Regurg Peak Ian: 2.36m/sec Updated by Ana Almaguer on 08/26/2016 2:56:33 PM electronically signed on 08/26/2016 2:57:48 PM with status of Final Wall Motion Muñiz: 1=Normal, 2=Hypokinesis, 3=Akinesis, 4=Dyskinesis, 5=Aneurysmal, 6=Hyperkinetic, X=Not Visualized (Blank)=Missing
--- NOTE | 2016-08-26 15:47 | OB/GYN Consult Note ---
Date of Encounter: 08/26/16 Time of Encounter: 15:47 Assessment and Plan (1) Vaginal bleeding Current Visit: Yes Status: Acute Reported by patient as mild spotting, onset after heparin was started. Patient currently on dual antiplatelet therapy + heparin. Serum negative. Hb/Hct stable. Patient asymptomatic for anemia. Clinically believe patient's vaginal bleeding is secondary to concomitant aspirin, plavix, and heparin. Though needed from a cardiovascular standpoint, reduction would hasten the resolution of her bleeding. Patient is stable; no surgical intervention recommended at this time. Recommend trending Hb and Hct. If patient symptomatic, recommend transfusion. Suggest outpatient follow-up to her primary SENIOR SAFETY SUPPORT MANAGER. Agree with current medical management. We appreciate this consultation. Please let us know if we may be of additional assistance. (2) Elevated troponin Current Visit: Yes Status: Acute (3) CKD (chronic kidney disease) Current Visit: Yes Status: Chronic Qualifiers: Chronic kidney disease stage: stage 2 (mild) Qualified Code(s): N18.2 - Chronic kidney disease, stage 2 (mild) (4) Diabetes mellitus Current Visit: Yes Status: Chronic Qualifiers: Diabetes mellitus type: type 2 Diabetes mellitus complication status: with ketoacidosis Diabetes mellitus complication detail: without coma Diabetes mellitus mcc insulin use: with continuous churn buttermaker use Qualified Code(s): E13.10 - Other specified diabetes mellitus with ketoacidosis without coma; Z79.4 - half-way (current) use of insulin History of Present Illness Consult date: 08/26/16 Requesting physician: Rito Negron Reason for consult: other (vaginal spotting) Chief complaint: chest pain History of present illness: Ms. Somers, a 30yo female, presented to the emergency department yesterday with chief complaint of chest pain. Hx CAD s/p CAGB, on chronic aspirin and plavix. Also uncontrolled DM and CKD. Patient is 2 months s/p cesarian section. Patient says she never discontinued aspirin through the or pre-op. She resumed plavix the same day post-op. She was started on heparin yesterday. Her vaginal bleeding has been intermittent since the . This occurrence of vaginal bleeding began yesterday after starting heparin. Described as light spotting. Patient originally thought she was starting her menstruation. Denies fever, weakness, fatigue, light headedness, unusual paleness of skin. No epistaxis, hematuria, hematochezia, melena. No burning/frequency/urgency with urination. No abdominal pain, pelvic pain, vaginal pain. Denies any post complications. Past Med Surg Social Fam HX - Past Medical History Medical history: coronary artery disease, diabetes, hyperlipidemia, hypertension , myocardial infarction, renal disease, thyroid disease Psychiatric history: anxiety, depression - Past Surgical History Surgical History: angioplasty/stent, coronary bypass (CABG) - Social History Smoking Status: Never smoker Smokeless Tobacco Status: No Alcohol use: rarely Drug use: none - Family History Mother Family Member Ethnicity: Non- Living Status: Still Living Hx Family Cardiac Disorders: Yes (CAD) Father Family Member Ethnicity: Non- Living Status: Still Living Hx Family Cardiac Disorders: Yes (Father hx of heart disease s/p CABG) Brother Adopted: No Family Member Ethnicity: Non- Living Status: Hx Family Cardiac Disorders: (Father w/heart disease s/p CABG) Medications and Allergies Insulin Glargine,Hum.rec.anlog [Lantus Solostar] 1 unit SQ HS 01/12/15 [History] Insulin LISPRO [HumaLOG] 2 - 10 units SQ TIDWM 01/12/15 [History] Ranitidine HCl 150 mg PO BID 01/12/15 [History] Aspirin Enteric Coated [Aspirin EC] 81 mg PO DAILY tablet. 01/23/15 [Rx] Atorvastatin [Lipitor] 80 mg PO HS #60 tablet 01/23/15 [Rx] Amlodipine [Norvasc] 10 mg PO DAILY 08/25/16 [History] Carvedilol [Coreg] 50 mg PO BID 08/25/16 [History] Clopidogrel [Plavix] 75 mg PO DAILY 08/25/16 [History] HydrOXYzine Pamoate [Vistaril] 50 mg PO TID PRN 08/25/16 [History] Hydralazine HCl 50 mg PO BID 08/25/16 [History] Hydralazine HCl 100 mg PO HS 08/25/16 [History] Levothyroxine [Synthroid] 25 mcg PO DAILY 08/25/16 [History] Allergies Sulfa (Sulfonamide Antibiotics) Allergy (Verified 08/15/16 22:30) Rash hydrocodone [From Vicodin] Adverse Reaction (Verified 08/15/16 22:30) Nausea tape Adverse Reaction (Uncoded 08/15/16 22:30) Redness of Skin z pack Adverse Reaction (Uncoded 08/15/16 22:30) Nausea Review of Systems Constitutional: as per HPI Cardiovascular: as per HPI Respiratory: as per HPI Gastrointestinal: as per HPI Genitourinary Female: as per HPI Menstruation: as per HPI Exam - Vital Signs Vital signs: Initial Vital Signs Temp Pulse Resp BP Pulse Ox 98.0 F 114 18 170/96 98 08/25/16 09:09 08/25/16 09:09 08/25/16 09:09 08/25/16 09:09 08/25/16 09:09 - Constitutional Constitutional: well developed, well nourished, no acute distress, other (obese) - HEENT HEENT: Normocephaly, Mucus Membranes Moist - Neck Neck exam: normal inspection - Lungs Respiratory exam: CTAB - Cardiovascular Cardiovascular exam: RRR, +S1, +S2 - Abdomen Abdomen: Present: bowel sounds normal, non tender. Absent: gravid - Extremities Extremities exam: normal capillary refill, normal inspection, warm - Uterus Uterus exam: Present: normal size. Absent: tender - Comments Comments: Low transverse cesarian section incision is clean, dry, not erythmatous. Results Result Diagrams: 08/26/16 04:18 08/26/16 03:06 Abnormal lab results Hgb 11.3 g/dL (11.5-15.4) L 08/26/16 04:18 MCV 77.2 fL (83.0-100.0) L 08/26/16 04:18 MCH 24.0 pg (28.0-33.3) L 08/26/16 04:18 MCHC 31.1 g/dL (31.6-35.5) L 08/26/16 04:18 APTT 38.0 Seconds (26.0-36.0) H 08/26/16 13:13 D-Dimer 990 ng/mLFEU (0-500) H 08/25/16 09:54 Sodium 135 mEq/L (136-145) L 08/26/16 03:06 BUN 26 mg/dL (7-20) H 08/26/16 03:06 Creatinine 1.59 mg/dL (0.57-1.11) H 08/26/16 03:06 Est GFR ( Amer) 47 (> 60) L 08/26/16 03:06 Est GFR (Non-Af Amer) 39 (> 60) L 08/26/16 03:06 Glucose 269 mg/dL (70-99) H 08/26/16 03:06 POC Glucose 388 (58-89) H 08/26/16 10:56 Hemoglobin A1c 11.3 % (-5.6) H 08/25/16 09:54 Calcium 8.5 mg/dL (8.6-10.8) L 08/26/16 03:06 Troponin I 0.28 ng/mL (0-0.03) H* 08/26/16 09:48 Triglycerides 455 mg/dL (< 150) H 08/26/16 03:06 Cholesterol 260 mg/dL (< 200) H D 08/26/16 03:06 HDL Cholesterol 33 mg/dL (40-59) L 08/26/16 03:06 Cholesterol/HDL Ratio 7.9 (0-4.9) H 08/26/16 03:06 Urine Protein >=300 mg/dL (Neg-Trace) H 08/25/16 10:45 Urine Glucose (UA) >=1000 mg/dL (Normal) H 08/25/16 10:45 Urine Ketones Trace mg/dL (Negative) H 08/25/16 10:45 Urine Blood Large (Negative) H 08/25/16 10:45 Urine Microscopic RBC 50-100 per hpf (0-3) H 08/25/16 10:45 Urine Microscopic WBC 5-15 per hpf (0-3) H 08/25/16 10:45 Ur Squamous Epith Cells Many per lpf (None-Few) H 08/25/16 10:45 Ur Culture Indicated? YES (NO) A 08/25/16 10:45 All other labs normal. Chest x-ray: report reviewed CT scan - abdomen: report reviewed CT scan - pelvis: report reviewed Consult Discharge Plan - Plan Referrals: Rachel Hong, [facility]CA [Primary Care Provider] -
--- NOTE | 2016-08-26 16:22 | Electrocardiograph Report ---
[place] [id number] Test Date: 2016-08-25 Pat Name: Eunice Somers Department: 103 Room: [facility] Gender: F [employer]: : 1985 Requested By: Chad Camilo Order Number: [id number] Reading MD: Jordan Marin MD Measurements Intervals [place] Rate: 111 P: 40 MD: 150 QRS: 17 QRSD: 76 T: 108 QT: 344 QTc: 410 Interpretive Statements SINUS TACHYCARDIA LEFT VENTRICULAR HYPERTROPHY WITH STRAIN PATTERN Electronically Signed On 08-26-2016 16:20:29 EDT by Jordan Marin MD
--- NOTE | 2016-08-26 16:26 | Electrocardiograph Report ---
[address] [place], [place] [address] Test Date: 2016-08-25 Pat Name: Eunice Somers Department: 109 Room: [facility] Gender: F [employer]: : 1985 Requested By: Chad Camilo Order Number: [id number] Reading MD: Jordan Marin MD Measurements Intervals [place] Rate: 82 P: 35 AK: 161 QRS: 13 QRSD: 82 T: 145 QT: 391 QTc: 430 Interpretive Statements SINUS RHYTHM LATERAL ISCHEMIA Electronically Signed On 08-26-2016 16:25:21 EDT by Jordan Marin MD
[2016-08-26] MEDS: Acetaminophen 325 MG TABLET PO PRN (16:56)
[2016-08-26] MEDS: Insulin DETEMIR 100 UNIT/ML X5UNITS SQ SCH (20:55)
[2016-08-27] MEDS: Heparin 25,000 UNIT/500 ML D5W 25,000 UNIT/500 ML MLS IVC SCH (02:25)
[2016-08-27 04:56] LABS: Basophils % 0.4 %; Eosinophils # 0.3 K/mcL (0.0-0.6); Eosinophils % 3.4 %; Hemoglobin 11.3 g/dL (11.5-15.4); Immature Granulocytes % 0.4 % (0-4); Lymphocytes # 3.8 K/mcL (0.6-4.6); Lymphocytes % 45.6 %; Mean Corpuscular HGB Conc 31.4 g/dL (31.6-35.5); Mean Corpuscular Hemoglobin 24.2 pg (28.0-33.3); Mean Corpuscular Volume 77.3 fL (83.0-100.0); Mean Platelet Volume 10.2 fL (9.4-12.4); Monocytes # 0.6 K/mcL (0.0-1.3); Monocytes % 7.5 %; Neutrophils # 3.6 K/mcL (1.6-8.9); Platelet Count 342 K/mcL (140-400); Red Blood Count 4.66 M/mcL (3.82-4.97); Red Cell Distribution Width 13.8 % (11.5-14.5); Segmented Neutrophils % 42.7 %
[2016-08-27 05:07] LABS: Calcium 8.6 mg/dL (8.6-10.8)
[2016-08-27] MEDS: Levothyroxine 25 MCG TABLET PO SCH (06:40)
[2016-08-27] MEDS: Famotidine 20 MG TABLET PO SCH (06:41)
[2016-08-27] MEDS: Aspirin Enteric Coated 81 MG Tablet PO SCH (08:17)
[2016-08-27] MEDS: hydrALAZINE 25 MG TABLET PO SCH (08:18)
[2016-08-27] MEDS: Acetaminophen 325 MG TABLET PO PRN (08:18)
[2016-08-27] MEDS: amLODIPine 5 MG TABLET PO SCH (08:18)
[2016-08-27] MEDS: Insulin LISPRO 300 UNITS/3 ML VIAL SQ SCH ×2 (08:19)
[2016-08-27] MEDS: Insulin DETEMIR 100 UNIT/ML X5UNITS SQ SCH (08:43)
[2016-08-27 09:12] VITALS: BP 122/71
--- NOTE | 2016-08-27 09:41 | Cardiology Progress Note ---
Date of Encounter: 08/27/16 Time of Encounter: 09:00 Assessment and Plan (1) Elevated troponin Current Visit: Yes Status: Acute NSTEMI type I vs. II, demand ischemia, in the setting of NICOLASA on CKD, HTN, and DKA. No acute ECG changes compared to previous. She states chest pain was different from prior CT presentation. Pain free upon exam. Peak troponin=0.35 with downward trend. No indication for cardiac rehab. Hx of premature CAD--CABG x1 in January 2015 due to ISR. Reports PCI in September [address] Burk at [facility]. Of note, had known residual LCx stenosis s/p CABG with Dr. aLmas. Has also followed with [facility] and has appointment 09/11/16. TTE reviewed, EF 65% with normal wall motion. Will stop IV heparin gtt. Recommend medical management, continue current CV medications including asa, statin, betablocker, and plavix. No further inpatient testing recommended at this time. Follow-up with [facility] as scheduled on 09/11/16. (2) Hypertension Current Visit: Yes Status: Chronic SBP >170 upon admission. Home medications resumed and is now stable, encouraged compliance with meds at home. Qualifiers: Hypertension type: essential hypertension Qualified Code(s): I10 - Essential (primary) hypertension (3) NICOLASA (acute kidney injury) Current Visit: Yes Status: Acute NICOLASA on CKD; SCr improved this AM. Baseline 1.3-1.6. Discussion w patient/family: The assessment and plan as outlined above was discussed with the patient and/or family members who expressed understanding and agreement. All questions were answered. Thank you for involving us in the care of your patient. Please call with any questions. The patient will be discussed and reviewed with Dr. Sauceda; Cardiology will sign- off, please call with questions. Subjective Principal diagnosis: Elevated troponin, NICOLASA, DKA Interval history: Seen and examined. Has no complaints overnight including chest pain/discomfort, dyspnea, or palpitations. Has remained in ICU due to no available beds. Objective Vital Signs, Last 4 Hours Temp Pulse Resp BP Pulse Ox 08/27/16 08:58 98.5 F 08/27/16 08:00 80 18 122/71 97 General: Conversant, No Apparent Distress HEENT: Atraumatic, Normocephaly Cardiac: Reg Rate and Rhythm, Normal S1 and S2 Lungs: Normal Breath Sounds Neuro: Alert and responsive Abdomen: Soft Skin: No rashes noted on visualized skin Musculoskeletal: No Chest Wall Tenderness Extremities: No Edema, Normal Pulses Results 08/27/16 04:47 08/27/16 04:47 Lab Results 08/26/16 08/27/16 08/27/16 22:50 04:47 04:47 WBC 8.3 Hgb 11.3 L Hct 36.0 Plt Count 342 APTT 82.3 H D Sodium 135 L Potassium 4.0 Chloride 106 Carbon Dioxide 23 BUN 30 H Creatinine 1.51 H Glucose 311 H Calcium 8.6 08/27/16 04:47 WBC Hgb Hct Plt Count APTT 82.8 H Sodium Potassium Chloride Carbon Dioxide BUN Creatinine Glucose Calcium Active Medications Acetaminophen (Tylenol) 650 mg PO Q6HR PRN PRN Reason: Pain Stop: 02/25/17 16:01 Last Admin: 08/27/16 08:18 Dose: 650 mg Amlodipine Besylate (Norvasc) 10 mg PO DAILY [facility] PRN Reason: Protocol Stop: 02/25/17 09:01 Last Admin: 08/27/16 08:18 Dose: 10 mg Aspirin (Aspirin Ec) 81 mg PO DAILY [facility] Stop: 02/25/17 09:01 Last Admin: 08/27/16 08:17 Dose: 81 mg Atorvastatin Calcium (Lipitor) 80 mg PO HS [facility] Stop: 02/24/17 21:01 Last Admin: 08/26/16 20:54 Dose: 80 mg Carvedilol (Coreg) 50 mg PO BID [facility] PRN Reason: Protocol Stop: 02/24/17 21:01 Last Admin: 08/27/16 08:18 Dose: 50 mg Clopidogrel Bisulfate (Plavix) 75 mg PO DAILY [facility] Stop: 02/25/17 09:01 Last Admin: 08/27/16 08:18 Dose: 75 mg Dextrose/Water (Dextrose 50% (Syg)) 25 ml IVP Q15MIN PRN PRN Reason: Hypoglycemia Stop: 02/24/17 13:36 Dextrose/Water (Dextrose 50% (Syg)) 25 ml IVP AD PRN PRN Reason: Hypoglycemia Stop: 02/24/17 17:55 Famotidine (Pepcid) 20 mg PO DAILY@0730 [facility] Stop: 02/25/17 07:31 Last Admin: 08/27/16 06:41 Dose: 20 mg Hydralazine HCl (Hydralazine) 50 mg PO BID [facility] Stop: 02/24/17 21:01 Last Admin: 08/27/16 08:18 Dose: 50 mg Hydroxyzine Pamoate (Hydroxyzine Pamoate) 50 mg PO TID PRN PRN Reason: Anxiety Last Admin: 08/26/16 17:58 Dose: 50 mg Dextrose/Sodium Chloride (D5% And 0.45% Nacl 1000 Ml Bag) 1,000 mls @ 250 mls/ hr IVC .Q4H PRN PRN Reason: SEE COMMENTS Stop: 02/24/17 14:12 Potassium Chloride/Dextrose/Sod Cl (Kcl 20meq In D5%-0.45 Nacl) 20 meq in 1, 000 mls @ 250 mls/hr IVC .Q4H PRN PRN Reason: SEE COMMENTS Stop: 02/24/17 14:17 Dextrose (Dextrose 5%) 1,000 mls @ 100 mls/hr IV CONT PRN PRN Reason: HYPOGLYCEMIA Stop: 02/24/17 17:55 Insulin Detemir (Levemir) 15 unit SQ BID [facility] Stop: 02/25/17 21:01 Last Admin: 08/27/16 08:43 Dose: 15 unit Insulin Human Lispro (Humalog) 0 units SQ HS [facility] PRN Reason: Protocol Stop: 02/24/17 21:01 Last Admin: 08/26/16 20:01 Dose: 7 units Insulin Human Lispro (Humalog) 0 units SQ TIDAC [facility] PRN Reason: Protocol Stop: 02/25/17 07:31 Last Admin: 08/27/16 08:19 Dose: 12 units Insulin Human Lispro (Humalog) 8 units 0.08 units/kg (8 units) SQ TIDWM [facility] Stop: 02/25/17 12:01 Last Admin: 08/27/16 08:19 Dose: 8 units Levothyroxine Sodium (Synthroid) 25 mcg PO DAILY@0630 [facility] Stop: 02/25/17 06:31 Last Admin: 08/27/16 06:40 Dose: 25 mcg Naloxone HCl (Narcan) 0.4 mg IVP Q2MIN PRN PRN Reason: Opioid Reversal Stop: 02/24/17 13:39 Ondansetron HCl (Zofran) 4 mg IVP Q8HR PRN PRN Reason: Nausea And Vomiting Stop: 02/24/17 13:39 - Imaging and Cardiology Stress Test: report reviewed Echo: report reviewed Cardiac cath: report reviewed Other Results: 12 hour tele: avg HR=77 SR. No significant events noted. - EKG Interpretation EKG results cardiology: personally reviewed Consult Discharge Plan - Plan Referrals: Rachel Hong CNP [Primary Care Provider] -
--- NOTE | 2016-08-27 11:02 | Discharge Summary ---
Date of Encounter: 08/27/16 Time of Encounter: 11:00 - Discharge Diagnosis (1) DKA, type 2 Priority: Primary Status: Acute Qualifiers: Diabetes mellitus complication detail: without coma Diabetes mellitus intermediate project manager insulin use: without intermediate project manager use Qualified Code(s): E13.10 - Other specified diabetes mellitus with ketoacidosis without coma (2) CKD (chronic kidney disease) stage 3, GFR 30-59 ml/min Priority: Primary Status: Chronic (3) Chest pain Priority: Primary Status: Acute Qualifiers: Chest pain type: precordial pain Qualified Code(s): R07.2 - Precordial pain (4) Elevated troponin Priority: Primary Status: Acute - Discharge Medications Prescriptions: Insulin Glargine,Hum.rec.anlog [Lantus Solostar] 15 unit SQ BID #4 insuln.pen Insulin LISPRO [HumaLOG] 8 units SQ TIDWM #1 vial Home Medications: Insulin LISPRO [HumaLOG] 2 - 10 units SQ TIDWM 01/12/15 [History] Ranitidine HCl 150 mg PO BID 01/12/15 [History] Aspirin Enteric Coated [Aspirin EC] 81 mg PO DAILY tablet. 01/23/15 [Rx] Atorvastatin [Lipitor] 80 mg PO HS #60 tablet 01/23/15 [Rx] Amlodipine [Norvasc] 10 mg PO DAILY 08/25/16 [History] Carvedilol [Coreg] 50 mg PO BID 08/25/16 [History] Clopidogrel [Plavix] 75 mg PO DAILY 08/25/16 [History] HydrOXYzine Pamoate [Vistaril] 50 mg PO TID PRN 08/25/16 [History] Hydralazine HCl 50 mg PO BID 08/25/16 [History] Hydralazine HCl 100 mg PO HS 08/25/16 [History] Levothyroxine [Synthroid] 25 mcg PO DAILY 08/25/16 [History] Insulin Glargine,Hum.rec.anlog [Lantus Solostar] 15 unit SQ BID #4 insuln.pen [Rx] Insulin LISPRO [HumaLOG] 8 units SQ TIDWM #1 vial 08/27/16 [Rx] Allergies/Adverse Reactions: Allergies Sulfa (Sulfonamide Antibiotics) Allergy (Verified 08/15/16 22:30) Rash hydrocodone [From Vicodin] Adverse Reaction (Verified 08/15/16 22:30) Nausea tape Adverse Reaction (Uncoded 08/15/16 22:30) Redness of Skin z pack Adverse Reaction (Uncoded 08/15/16 22:30) Nausea Procedures/tests Complete & Pending: Procedures Performed prior 72 hours Category Date Time Status ECG 12 lead ECG [ECG] Routine Y 08/25/16 10:21 Completed ECG 12 lead ECG [ECG] Routine Y 08/25/16 22:48 Completed Date of admission: 08/26/16 13:35 Primary care physician: Rachel Hong CNP Consults: 08/26/16 13:49 Consult to Patent Law Specialist [CONS] Routine Comment: 08/26/16 13:50 Consult to PAPER GRADER [CONS] Routine Consulting Provider: [employer]RE[employer] Samreen Reason for Consult: Pt had a baby 2 months ago. She reports having 3-day of menstral period which stopped three days ago but restarted today. Currently on heparin drip for chest pain. Call Completed: Yes - Patient Status Disposition: Home, Self-Care Condition: Serious Functional capacity at discharge: independent ambulation Overall status at discharge: patient is back to baseline - Discharge Instructions Follow Up With: Rachel Hong CNP [Primary Care Provider] - (within 1 week of discharge ) Additional Instructions: Follow-up with [facility] cardiology on her scheduled appointment 09/11/2016 - Diet and Activity Activity: increase activity as tolerated, return to work once cleared by your PCP/specialist Diet: diabetic diet, low fat, low cholesterol Hospital course: Ms. Somers is a 30 year old female who is admitted to the hospital with complaints of chest discomfort that was atypical from her usual cardiac discomfort. However, because of her chest discomfort and her significant past medical history of having a coronary artery bypass grafting already, despite her early age, she was started on a heparin drip empirically. Her troponins do not get up above 0.43 and had declined on discharge. Cardiology feels this because of demand ischemia. She did have some hypertensive readings were in the course of hospital stay. She was started on insulin drip and then was converted over to normal insulin dosing. Her home dose from what she states, is 1 unit of Lantus insulin. This is mostly in the adequate for her degree of diabetes from what we can tell. She was started on insulin drip and then transitioned over to normal dosing for insulin. At home she stated that she was taking 1 unit of Lantus with sliding scale coverage only for her diabetes. This is obviously inadequate in that her A1c was 11.3. Her Lantus dose was increased to 15 units twice daily. She also had inclusion of pre-meal short acting insulin at 8 units before each meal. Her blood sugars are somewhat better than the course of stay, but this will still have to have surgery as outpatient is still running somewhat high. She has an appointment with [facility] cardiology on 09/11/2016 and she is to keep that appointment for cardiac follow-up. She is to follow up with her primary care provider in one week - Time Spent with Patient Total time spent providing and/or coordinating discharge services: - Constitutional Vitals: Temp Pulse Resp BP Pulse Ox 98.5 F 80 18 122/71 97 08/27/16 08:58 08/27/16 08:00 08/27/16 08:00 08/27/16 08:00 08/27/16 08:00 General appearance: Present: cooperative, A&O X 3, no acute distress, answers questions appropriately - Respiratory Respiratory exam: Present: CTAB - Cardiovascular Cardiovascular exam: Present: RRR, +S1, +S2
== END 2016-08-27 12:12 | disposition home or self-care (01) | DRG 638 ==
LOC: EMEROO 09:07 → ICNU 09:07 → SUATTDRO 12:16 → ICNU 13:44
PROVIDERS: ADMIT Internal Medicine; ATTEND Internal Medicine

== ENCOUNTER 2019-06-22 13:13 | Observation (INO) ==
[2019-06-22] MEDS: Nitroglycerin 0.4 MG TAB.SUBL SL PRN ×2 (13:32→13:37)
[2019-06-22 14:11] LABS: Prothrombin Time 11.9 Seconds (9.4-12.1)
[2019-06-22 14:20] LABS: Basophils % 0.1 %; Eosinophils # 0.2 K/mcL (0.0-0.6); Hematocrit 38.3 % (35.3-44.9); Hemoglobin 12.5 g/dL (11.5-15.4); Immature Granulocytes % 0.4 % (0-4); Lymphocytes # 1.4 K/mcL (0.6-4.6); Lymphocytes % 13.8 %; Mean Corpuscular HGB Conc 32.6 g/dL (31.6-35.5); Mean Corpuscular Volume 79.6 fL (83.0-100.0); Mean Platelet Volume 10.3 fL (9.4-12.4); Monocytes # 1.1 K/mcL (0.0-1.3); Monocytes % 10.9 %; Neutrophils # 7.4 K/mcL (1.6-8.9); Platelet Count 347 K/mcL (140-400); Red Blood Count 4.81 M/mcL (3.82-4.97); Red Cell Distribution Width 13.6 % (11.5-14.5); Segmented Neutrophils % 72.8 %; White Blood Count 10.1 K/mcL (4.3-11.1)
[2019-06-22 14:32] LABS: Calcium 8.7 mg/dL (8.6-10.3); Potassium 3.7 mEq/L (3.5-5.1); Troponin I 0.03 ng/mL (< 0.04)
[2019-06-22] MEDS: *HR* FentaNYL (PF) 100 MCG/2 ML VIAL IVP ONE ×2 (14:41→18:25)
[2019-06-22] MEDS ORDERED: MOM Conc 10 ML UD.LIQ PO PRN (15:24)
[2019-06-22] MEDS ORDERED: Naloxone 0.4 MG/ML INJ IVP PRN (15:24)
[2019-06-22] MEDS ORDERED: Ondansetron 4 MG/2 ML VIAL IVP PRN (15:24)
[2019-06-22] MEDS ORDERED: D5% in Water 1,000 ML IVC PRN (15:37)
[2019-06-22] MEDS ORDERED: *HR* Dextrose 50 % in Water (Syg) 50 ML SYRINGE IVP PRN (15:37)
[2019-06-22] MEDS ORDERED: Dextrose Gel 15 GM/37.5 ML TUBE PO PRN ×2 (15:37)
[2019-06-22] MEDS ORDERED: Melatonin 3 MG TABLET PO PRN (15:40)
[2019-06-22] MEDS: Insulin LISPRO 300 UNITS/3 ML VIAL SQ SCH (17:15)
[2019-06-22] MEDS: carvediloL 25 MG TABLET PO SCH (17:25)
[2019-06-22] MEDS: Famotidine 20 MG TABLET PO SCH (19:43)
[2019-06-22] MEDS: *HR* Heparin 5,000 UNIT/ML VIAL SQ SCH (19:43)
[2019-06-23 02:58] LABS: Basophils % 0.2 %; Eosinophils # 0.3 K/mcL (0.0-0.6); Eosinophils % 3.1 %; Hematocrit 38.7 % (35.3-44.9); Hemoglobin 12.6 g/dL (11.5-15.4); Immature Granulocytes % 0.2 % (0-4); Lymphocytes # 2.3 K/mcL (0.6-4.6); Lymphocytes % 26.8 %; Mean Corpuscular HGB Conc 32.6 g/dL (31.6-35.5); Mean Corpuscular Hemoglobin 26.5 pg (28.0-33.3); Mean Corpuscular Volume 81.5 fL (83.0-100.0); Mean Platelet Volume 10.4 fL (9.4-12.4); Monocytes % 11.3 %; Platelet Count 336 K/mcL (140-400); Red Blood Count 4.75 M/mcL (3.82-4.97); Red Cell Distribution Width 13.6 % (11.5-14.5); Segmented Neutrophils % 58.4 %; White Blood Count 8.5 K/mcL (4.3-11.1)
[2019-06-23 03:12] LABS: Calcium 8.4 mg/dL (8.6-10.3); Chol/HDL Ratio 2.9 (0-4.9); Potassium 3.8 mEq/L (3.5-5.1)
[2019-06-23] MEDS: *HR* Heparin 5,000 UNIT/ML VIAL SQ SCH ×3 (05:27→20:22)
[2019-06-23] MEDS: Levothyroxine 25 MCG TABLET PO SCH (05:28)
[2019-06-23] MEDS ORDERED: 0.9 % Sodium Chloride 1,000 ML IVC SCH (08:30)
[2019-06-23] MEDS: carvediloL 25 MG TABLET PO SCH ×2 (09:49→17:53)
[2019-06-23] MEDS: Aspirin 81 MG TAB.CHEW PO SCH (09:49)
[2019-06-23] MEDS: Famotidine 20 MG TABLET PO SCH ×2 (09:49→20:23)
[2019-06-23] MEDS: amLODIPine 5 MG TABLET PO SCH (09:49)
[2019-06-23] MEDS: Isosorbide MONOnitrate (24 HR) 60 MG TAB.ER.24H PO SCH (09:50)
[2019-06-23] MEDS: Insulin LISPRO 300 UNITS/3 ML VIAL SQ SCH ×2 (13:39→17:51)
[2019-06-23 14:03] LABS: Hematocrit 37.6 % (35.3-44.9); Hemoglobin 12.2 g/dL (11.5-15.4); Mean Corpuscular HGB Conc 32.4 g/dL (31.6-35.5); Mean Corpuscular Hemoglobin 26.3 pg (28.0-33.3); Platelet Count 346 K/mcL (140-400); Red Blood Count 4.64 M/mcL (3.82-4.97); Red Cell Distribution Width 13.6 % (11.5-14.5); White Blood Count 7.8 K/mcL (4.3-11.1)
[2019-06-23 14:35] LABS: Uric Acid 9.2 mg/dL (2.3-7.6)
[2019-06-23] MEDS: traZODone 50 MG TABLET PO SCH (20:23)
[2019-06-23] MEDS ORDERED: Acetaminophen 325 MG TABLET PO PRN (23:49)
[2019-06-24] MEDS: *HR* Heparin 5,000 UNIT/ML VIAL SQ SCH ×3 (03:14→20:03)
[2019-06-24] MEDS: Levothyroxine 25 MCG TABLET PO SCH ×2 (05:23→09:07)
[2019-06-24] MEDS ORDERED: Regadenoson 0.4 MG/5 ML SYRINGE IVP ONE (06:18)
[2019-06-24 07:42] LABS: Calcium 8.4 mg/dL (8.6-10.3); Potassium 4.1 mEq/L (3.5-5.1)
[2019-06-24] MEDS: Insulin LISPRO 300 UNITS/3 ML VIAL SQ SCH ×3 (08:54→16:42)
[2019-06-24] MEDS: Aspirin 81 MG TAB.CHEW PO SCH (09:07)
[2019-06-24] MEDS: amLODIPine 5 MG TABLET PO SCH (09:07)
[2019-06-24] MEDS: carvediloL 25 MG TABLET PO SCH ×2 (09:08→18:02)
[2019-06-24] MEDS: Isosorbide MONOnitrate (24 HR) 60 MG TAB.ER.24H PO SCH (09:08)
[2019-06-24] MEDS: Famotidine 20 MG TABLET PO SCH ×2 (09:08→20:00)
[2019-06-24 10:59] LABS: Estimated Average Glucose 154 mg/dl
[2019-06-24] MEDS ORDERED: Isosorbide MONOnitrate (24 HR) 30 MG TAB.ER.24H PO ONE (13:30)
[2019-06-24] MEDS ORDERED: 0.9 % Sodium Chloride 1,000 ML IVC SCH (13:45)
[2019-06-24 15:46] LABS: Protein/Creatinine Ratio,Urine 3.61 mg/mg (0.00-0.20); Sodium, Urine 69.8 mEq/L
[2019-06-24 15:49] LABS: Bilirubin,Urine Negative (Negative); Blood,Urine Trace (Negative); Clarity,Urine Clear (Clear); Color,Urine Yellow (Yellow); Glucose,Urine (UA) Normal (Normal); Ketones,Urine Negative (Negative); Leukocyte Esterase,Urine Negative (Negative); Nitrite,Urine Negative (Negative); Protein,Urine 100 mg/dL (Neg-Trace); Specific Gravity,Urine 1.009 (1.010-1.025); Urobilinogen,Urine Normal (Normal)
[2019-06-24 15:59] LABS: Bacteria,Urine Many per hpf (None-Few); Hyaline Casts,Urine None Seen per lpf (None-Few); Squamous Epithelial Cell,Urine Moderate per lpf (None-Few); WBC,Urine 0-3 per hpf (0-3)
[2019-06-24] MEDS: traZODone 50 MG TABLET PO SCH (20:01)
[2019-06-25] MEDS: *HR* Heparin 5,000 UNIT/ML VIAL SQ SCH ×2 (03:18→14:22)
[2019-06-25 05:25] LABS: Hematocrit 36.2 % (35.3-44.9); Hemoglobin 11.6 g/dL (11.5-15.4); Mean Corpuscular Hemoglobin 26.5 pg (28.0-33.3); Mean Corpuscular Volume 82.6 fL (83.0-100.0); Mean Platelet Volume 10.5 fL (9.4-12.4); Platelet Count 306 K/mcL (140-400); Red Blood Count 4.38 M/mcL (3.82-4.97); Red Cell Distribution Width 13.3 % (11.5-14.5); White Blood Count 8.6 K/mcL (4.3-11.1)
[2019-06-25] MEDS: Levothyroxine 25 MCG TABLET PO SCH (05:31)
[2019-06-25 05:43] LABS: Potassium 4.1 mEq/L (3.5-5.1)
[2019-06-25] MEDS: Insulin LISPRO 300 UNITS/3 ML VIAL SQ SCH ×3 (07:20→14:34)
[2019-06-25] MEDS: amLODIPine 5 MG TABLET PO SCH (08:04)
[2019-06-25] MEDS: Aspirin 81 MG TAB.CHEW PO SCH (08:04)
[2019-06-25] MEDS: carvediloL 25 MG TABLET PO SCH (08:04)
[2019-06-25] MEDS: Famotidine 20 MG TABLET PO SCH (08:05)
[2019-06-25] MEDS ORDERED: Isosorbide MONOnitrate (24 HR) 30 MG TAB.ER.24H PO SCH (09:00)
[2019-06-25] MEDS ORDERED: 0.9 % Sodium Chloride 1,000 ML IVC SCH (11:15)
[2019-06-25 18:58] VITALS: BP 134/80
== END 2019-06-25 19:55 | disposition home or self-care (01) ==
LOC: 3BNU 13:13 → EMEROOARM 13:13 → 3BNU 16:50
PROVIDERS: ADMIT Internal Medicine; ATTEND Internal Medicine

== ENCOUNTER → 2020-01-25 21:54 | Observation (INO) | END | disposition other institution (70) | LOC: 1NENULAB | PROVIDERS: ADMIT Advanced Practice Midwife; ATTEND Advanced Practice Midwife ==

== ENCOUNTER 2020-08-09 20:43 | Observation (INO) ==
[2020-08-09 22:03] LABS: Basophils % 0.3 %; Eosinophils # 0.3 K/mcL (0.0-0.6); Eosinophils % 3.4 %; Hematocrit 35.3 % (35.3-44.9); Hemoglobin 11.3 g/dL (11.5-15.4); Immature Granulocytes % 0.6 % (0-4); Lymphocytes # 2.3 K/mcL (0.6-4.6); Lymphocytes % 22.3 %; Mean Corpuscular Hemoglobin 25.5 pg (28.0-33.3); Mean Corpuscular Volume 79.5 fL (83.0-100.0); Mean Platelet Volume 10.7 fL (9.4-12.4); Monocytes # 0.9 K/mcL (0.0-1.3); Monocytes % 8.7 %; Neutrophils # 6.5 K/mcL (1.6-8.9); Platelet Count 324 K/mcL (140-400); Red Blood Count 4.44 M/mcL (3.82-4.97); Red Cell Distribution Width 12.3 % (11.5-14.5); Segmented Neutrophils % 64.7 %; White Blood Count 10.1 K/mcL (4.3-11.1)
[2020-08-09 22:23] LABS: Calcium 9.1 mg/dL (8.6-10.3); Potassium 4.3 mEq/L (3.5-5.1)
[2020-08-09] MEDS ORDERED: Clindamycin 900 MG/50 ML 900 MG/50 ML IV.SOLN IVPB ONE (22:46)
[2020-08-09] MEDS ORDERED: 0.9 % Sodium Chloride 1,000 ML IVC ONE (22:47)
[2020-08-10] MEDS ORDERED: Ondansetron 4 MG/2 ML VIAL IVP PRN (00:05)
[2020-08-10] MEDS ORDERED: Acetaminophen 325 MG TABLET PO PRN (00:05)
[2020-08-10] MEDS ORDERED: Naloxone 0.4 MG/ML INJ IVP PRN (00:05)
[2020-08-10] MEDS ORDERED: Melatonin 3 MG TABLET PO PRN (00:05)
[2020-08-10] MEDS ORDERED: Dextrose Gel 15 GM/37.5 ML TUBE PO PRN ×2 (00:14)
[2020-08-10] MEDS ORDERED: D5% in Water 1,000 ML IVC PRN (00:14)
[2020-08-10] MEDS ORDERED: *HR* Dextrose 50 % in Water (Vial) 50 ML VIAL IVP PRN (00:14)
[2020-08-10] MEDS ORDERED: 0.9 % Sodium Chloride 1,000 ML IVC SCH ×2 (00:30)
[2020-08-10 01:16] LABS: Hematocrit 33.1 % (35.3-44.9); Hemoglobin 10.8 g/dL (11.5-15.4); Mean Corpuscular HGB Conc 32.6 g/dL (31.6-35.5); Mean Corpuscular Hemoglobin 25.8 pg (28.0-33.3); Mean Platelet Volume 10.9 fL (9.4-12.4); Platelet Count 299 K/mcL (140-400); Red Blood Count 4.19 M/mcL (3.82-4.97); Red Cell Distribution Width 12.3 % (11.5-14.5); White Blood Count 11.6 K/mcL (4.3-11.1)
[2020-08-10 01:37] LABS: Calcium 9.1 mg/dL (8.6-10.3); Potassium 3.6 mEq/L (3.5-5.1)
[2020-08-10] MEDS: Insulin DETEMIR 100 UNIT/ML X5UNITS SUBQ SCH ×2 (01:48→20:01)
[2020-08-10 02:49] LABS: Estimated Average Glucose 338 mg/dl; Hemoglobin A1C 13.4 %
[2020-08-10] MEDS: *HR* Heparin 5,000 UNIT/ML VIAL SQ SCH ×3 (06:46→21:40)
[2020-08-10] MEDS: Insulin LISPRO 300 UNITS/3 ML VIAL SUBQ SCH ×3 (07:25→15:58)
[2020-08-10] MEDS ORDERED: Nystatin POWDER 30 GM BOTTLE TP PRN (08:40)
[2020-08-10] MEDS: amLODIPine 5 MG TABLET PO SCH (10:05)
[2020-08-10] MEDS: Aspirin Enteric Coated 81 MG Tablet PO SCH (10:05)
[2020-08-10] MEDS: Isosorbide MONOnitrate (24 HR) 30 MG TAB.ER.24H PO SCH (10:05)
[2020-08-10] MEDS: Doxycycline 100 MG CAPSULE PO SCH ×2 (11:45→20:01)
[2020-08-10] MEDS: 0.9 % Sodium Chloride 1,000 ML IVC SCH ×2 (11:45→19:56)
[2020-08-10] MEDS ORDERED: Ampicillin/Sulbactam 3,000 MG in 0.9 % Sodium Chloride Mini Bag 100 ML IVPB SCH (12:00)
[2020-08-10] MEDS ORDERED: Lidocaine/EPI 1:100k 1% 30 ML VIAL INFILT ONE (13:45)
[2020-08-10] MEDS ORDERED: Lidocaine/EPI 1:100k 1% 50 ML VIAL INFILT ONE (14:45)
[2020-08-10] MEDS ORDERED: Insulin LISPRO 300 UNITS/3 ML VIAL SUBQ ONE (16:17)
[2020-08-10] MEDS ORDERED: Insulin LISPRO 300 UNITS/3 ML VIAL SUBQ SCH (21:00)
[2020-08-10] MEDS ORDERED: traZODone 50 MG TABLET PO SCH (21:00)
[2020-08-11] MEDS ORDERED: *HR* Labetalol 20 MG/4 ML SYRINGE IVP ONE (00:01)
[2020-08-11] MEDS: *HR* Heparin 5,000 UNIT/ML VIAL SQ SCH (05:08)
[2020-08-11 05:17] LABS: Basophils % 0.5 %; Eosinophils # 0.4 K/mcL (0.0-0.6); Eosinophils % 4.5 %; Hematocrit 36.4 % (35.3-44.9); Hemoglobin 11.7 g/dL (11.5-15.4); Lymphocytes # 2.9 K/mcL (0.6-4.6); Lymphocytes % 33.1 %; Mean Corpuscular HGB Conc 32.1 g/dL (31.6-35.5); Mean Corpuscular Hemoglobin 26.1 pg (28.0-33.3); Mean Corpuscular Volume 81.3 fL (83.0-100.0); Mean Platelet Volume 10.3 fL (9.4-12.4); Monocytes # 0.7 K/mcL (0.0-1.3); Monocytes % 7.9 %; Neutrophils # 4.7 K/mcL (1.6-8.9); Platelet Count 303 K/mcL (140-400); Red Blood Count 4.48 M/mcL (3.82-4.97); Red Cell Distribution Width 12.3 % (11.5-14.5); White Blood Count 8.9 K/mcL (4.3-11.1)
[2020-08-11] MEDS ORDERED: Levothyroxine 25 MCG TABLET PO SCH ×2 (06:30)
[2020-08-11 07:06] LABS: Calcium 8.5 mg/dL (8.6-10.3); Potassium 4.5 mEq/L (3.5-5.1)
[2020-08-11] MEDS: Isosorbide MONOnitrate (24 HR) 30 MG TAB.ER.24H PO SCH (07:52)
[2020-08-11] MEDS: Aspirin Enteric Coated 81 MG Tablet PO SCH (07:53)
[2020-08-11] MEDS: Doxycycline 100 MG CAPSULE PO SCH (07:53)
[2020-08-11] MEDS: amLODIPine 5 MG TABLET PO SCH (07:53)
[2020-08-11] MEDS: Insulin LISPRO 300 UNITS/3 ML VIAL SUBQ SCH ×2 (07:53→12:13)
[2020-08-11 12:18] VITALS: BP 166/83
[2020-08-11] MEDS ORDERED: Insulin LISPRO 300 UNITS/3 ML VIAL SUBQ ONE (13:35)
== END 2020-08-11 14:15 | disposition home or self-care (01) ==
LOC: EMEROOARM 20:43 → 2ANU 20:43
PROVIDERS: ADMIT Internal Medicine; ATTEND Internal Medicine